=== PATIENT | male | born 1965 | race Caucasian/White ===

== ENCOUNTER 2021-01-03 04:10 | Inpatient (IN) | payer MEDICARE ==
[2021-01-03] VITALS (27 sets, daily range): BP systolic 93–136; BP diastolic 58–99
[~2021-01-03] VITALS: Ht 188 cm; Wt 91.2 kg
[2021-01-03] MEDS ORDERED: FAMOTIDINE (10MG/ML) 2ML VL IV ONE ×2 (04:45→05:30)
[2021-01-03] MEDS ORDERED: NITROGLYCERIN 2% OINT 1GM PKG TD ONE (05:00)
[2021-01-03] MEDS ORDERED: ACETAMINOPHEN 325 MG TAB PO ONE (05:00)
[2021-01-03 05:17] LABS: Basophils # (auto) 0 10 ^3/uL (0-0.2); Basophils % (auto) 0.4 % (0.0-2.0); Eosinophils # (auto) 0.2 10 ^3/uL (0-0.8); Eosinophils % (auto) 1.6 % (0.0-7.0); Hematocrit 46.3 % (41.0-53.0); Hemoglobin 15.8 g/dL (13.5-17.5); Lymphocytes # (auto) 2.3 10 ^3/uL (0.4-5.4); Lymphocytes % (auto) 22.5 % (10.0-50.0); Mean Corpuscular Hemoglobin 31.7 pg (28.0-32.0); Mean Corpuscular Hgb Conc. 34.1 g/dL (32.0-36.0); Mean Corpuscular Volume 92.9 fL (80.0-100.0); Monocytes # (auto) 0.6 10 ^3/uL (0-1.3); Monocytes % (auto) 5.7 % (0.0-12.0); Neutrophils # (auto) 7.1 10 ^3/uL (1.6-8.6); Neutrophils % (auto) 69.8 % (37.0-80.0); Red Blood Cells 4.98 10^6/uL (4.5-5.90); Red Cell Distribution Width 13.4 % (11.8-14.3); White Blood Cell 10.2 10^3/uL (4.4-10.8)
[2021-01-03] MEDS ORDERED: SUCRALFATE 1 GM/10 ML ORAL SUSP PO ONE (05:30)
[2021-01-03] MEDS ORDERED: LIDOCAINE VISCOUS 2% 15ML UD PO ONE (05:30)
[2021-01-03 05:34] LABS: Albumin 3.4 g/dL (3.4-5.0); Calcium 8.3 mg/dL (8.5-10.1); INR 0.98 (0.9-1.15); Partial Thromboplastin Time 29.5 sec (23.0-31.2); Potassium 3.6 mmol/L (3.5-5.1)
[2021-01-03 05:40] LABS: BUN/Creatinine Ratio 23.4; Bilirubin, Total 0.3 mg/dL (0.2-1.0); Total Protein 7.3 g/dL (6.4-8.2)
[2021-01-03] MEDS ORDERED: NITROGLYCERIN 0.4 MG SL TAB SL PRN ×2 (06:45→17:30)
[2021-01-03] MEDS ORDERED: ACETAMINOPHEN 325 MG TAB PO PRN (06:45)
[2021-01-03] MEDS ORDERED: TEMAZEPAM 15 MG CAP PO PRN (06:45)
[2021-01-03] MEDS ORDERED: LISINOPRIL 5 MG TAB PO SCH (06:45)
[2021-01-03] MEDS ORDERED: cloNIDine HCL 0.1 MG TAB PO PRN (06:45)
[2021-01-03] MEDS ORDERED: ENOXAPARIN SOD 100 MG/1 ML SYRINGE SC ONE (07:00)
[2021-01-03] MEDS ORDERED: METOPROLOL TARTRATE 25 MG TAB PO ONE (07:00)
[2021-01-03] MEDS: MORPHINE SULFATE INJECTION 2 MG/ML SYRG IV PRN ×2 (07:30→10:27)
[2021-01-03] MEDS: ONDANSETRON HCL 4 MG/2 ML VIAL IV PRN ×3 (07:30→18:44)
[2021-01-03] MEDS ORDERED: HEPARIN SODIUM (PORCINE) 5000 UNITS/ML 1ML VIAL IV ONE (08:30)
[2021-01-03] MEDS ORDERED: ATORVASTATIN 20 MG TAB PO ONE (09:00)
[2021-01-03] MEDS ORDERED: CLOPIDOGREL BISULFATE 75 MG TAB PO ONE (09:00)
[2021-01-03] MEDS ORDERED: ASPirin 325 MG TAB PO ONE (09:00)
[2021-01-03 09:33] LABS: Cholesterol 196 mg/dL (< 200)
[2021-01-03 09:35] LABS: HDL Cholesterol 40 mg/dL (40-59); LDL Cholesterol 128 mg/dL (< 100); Triglycerides 97 mg/dL (< 150)
[2021-01-03 09:48] LABS: INR 0.99 (0.9-1.15); Partial Thromboplastin Time 32.9 sec (23.0-31.2)
[2021-01-03] MEDS ORDERED: OPTISON 3ml Vial for INJ IV ONE ×2 (09:48→10:15)
[2021-01-03] MEDS: FAMOTIDINE 20 MG TAB PO SCH ×2 (10:00→22:37)
[2021-01-03] MEDS ORDERED: ASPirin 81 mg TAB PO SCH (10:00)
[2021-01-03] MEDS ORDERED: HCTZ 25 MG TAB PO SCH (10:00)
[2021-01-03] MEDS ORDERED: amLODIPine BESYLATE 5 MG TAB PO SCH (10:00)
[2021-01-03] MEDS: NITROGLYCERIN 50MG/250ML 250 ML IV SCH (10:06)
[2021-01-03] MEDS: HEPARIN DRIP/D5W 100UNITS/ML 250 ML IV SCH (10:34)
[2021-01-03] MEDS ORDERED: NICOTINE 14 MG/24HR TOPICAL PATCH TD ONE (10:45)
[2021-01-03] MEDS ORDERED: IOHEXOL 350 MG/ML 100ML IJ ONE ×2 (14:05→14:59)
[2021-01-03] MEDS ORDERED: LIDOCAINE 2%HCL (LOCAL ANESTH.) INJ 20ML MDV ONE (14:05)
[2021-01-03] MEDS ORDERED: ANGIOMAX 250 MG VIAL IV ONE (14:15)
[2021-01-03] MEDS ORDERED: fentaNYL CITRATE 100 MCG/2 ML VL ONE ×2 (14:15→16:43)
[2021-01-03] MEDS ORDERED: VERAPAMIL 2.5MG/ML INJ 2ML VIAL IV ONE (14:15)
[2021-01-03] MEDS ORDERED: MIDAZOLAM HCL 2MG/2ML 2ml VIAL (1mg/ml) ONE ×2 (14:16→16:44)
[2021-01-03] MEDS ORDERED: SODIUM CHL 0.9% 0 ML ONE (14:16)
[2021-01-03] MEDS ORDERED: HEPARIN SODIUM (PORCINE) 5000 UNITS/ML 1ML VIAL ONE (14:40)
[2021-01-03] MEDS ORDERED: ATROPINE SULF 1 MG/10ml SYR ONE (14:41)
[2021-01-03] MEDS ORDERED: EPINEPHrine HCL 1 MG/10 ML SYRG ONE (14:49)
[2021-01-03] MEDS ORDERED: IODIXANOL 320MG/ML 100ML BTL IV ONE ×2 (15:28→15:47)
[2021-01-03] MEDS ORDERED: ONDANSETRON HCL 4 MG/2 ML VIAL ONE (15:30)
[2021-01-03] MEDS ORDERED: hydrALAZINE HCL 20 MG/ML VL ONE (16:10)
[2021-01-03] MEDS ORDERED: CLOPIDOGREL 300 MG TAB ONE (16:55)
[2021-01-03] MEDS ORDERED: ASPirin 325 MG TAB ONE (16:55)
[2021-01-03] MEDS ORDERED: VANCOMYCIN 1GM/250ML 250 ML IV ONE (17:30)
[2021-01-03] MEDS ORDERED: ZOLPIDEM TARTRATE 5 MG TAB PO PRN (17:30)
[2021-01-03] MEDS ORDERED: MORPHINE SULFATE INJECTION 2 MG/ML SYRG IV PRN (17:30)
[2021-01-03] MEDS ORDERED: ALPRAZolam 0.25 MG TAB PO PRN (18:00)
[2021-01-03 18:52] LABS: Basophils # (auto) 0 10 ^3/uL (0-0.2); Basophils % (auto) 0.3 % (0.0-2.0); Eosinophils # (auto) 0 10 ^3/uL (0-0.8); Hematocrit 45.9 % (41.0-53.0); Hemoglobin 15.4 g/dL (13.5-17.5); Lymphocytes # (auto) 1.7 10 ^3/uL (0.4-5.4); Lymphocytes % (auto) 12.6 % (10.0-50.0); Mean Corpuscular Hemoglobin 31.2 pg (28.0-32.0); Mean Corpuscular Hgb Conc. 33.5 g/dL (32.0-36.0); Mean Corpuscular Volume 93.3 fL (80.0-100.0); Monocytes # (auto) 0.7 10 ^3/uL (0-1.3); Monocytes % (auto) 5.3 % (0.0-12.0); Neutrophils # (auto) 10.9 10 ^3/uL (1.6-8.6); Neutrophils % (auto) 81.8 % (37.0-80.0); Red Blood Cells 4.92 10^6/uL (4.5-5.90); Red Cell Distribution Width 13.3 % (11.8-14.3); White Blood Cell 13.4 10^3/uL (4.4-10.8)
[2021-01-03 19:04] LABS: INR 1.1 (0.9-1.15)
[2021-01-03 19:28] LABS: Partial Thromboplastin Time 93.1 sec (23.0-31.2)
[2021-01-03] MEDS: HYDROmorphone HCL 2 MG/ML VL IV PRN (20:51)
[2021-01-03] MEDS ORDERED: CARVEDILOL 3.125 MG TAB PO SCH (22:00)
[2021-01-03] MEDS ORDERED: METOPROLOL TARTRATE 25 MG TAB PO SCH (22:00)
[2021-01-03] MEDS ORDERED: ATORVASTATIN 20 MG TAB PO SCH (22:00)
[2021-01-03] MEDS: CARVEDILOL 3.125 MG TAB PO SCH (22:38)
[2021-01-03] MEDS: ATORVASTATIN 20 MG TAB PO SCH (22:38)
[2021-01-03] MEDS: LISINOPRIL 10 MG TAB PO SCH (23:18)
[2021-01-04] VITALS (79 sets, daily range): BP systolic 68–147; BP diastolic 38–88
[2021-01-04] MEDS: HYDROmorphone HCL 2 MG/ML VL IV PRN ×3 (04:16→16:09)
[2021-01-04 04:20] LABS: Basophils # (auto) 0 10 ^3/uL (0-0.2); Basophils % (auto) 0.4 % (0.0-2.0); Eosinophils # (auto) 0 10 ^3/uL (0-0.8); Eosinophils % (auto) 0.1 % (0.0-7.0); Hematocrit 43.4 % (41.0-53.0); Hemoglobin 14.6 g/dL (13.5-17.5); Lymphocytes % (auto) 16.4 % (10.0-50.0); Mean Corpuscular Hemoglobin 31.6 pg (28.0-32.0); Mean Corpuscular Hgb Conc. 33.6 g/dL (32.0-36.0); Mean Corpuscular Volume 94.1 fL (80.0-100.0); Monocytes % (auto) 8.1 % (0.0-12.0); Neutrophils # (auto) 9.2 10 ^3/uL (1.6-8.6); Nucleated Red Blood Cells % 0.1 %; Red Blood Cells 4.61 10^6/uL (4.5-5.90); Red Cell Distribution Width 13.4 % (11.8-14.3); White Blood Cell 12.3 10^3/uL (4.4-10.8)
[2021-01-04 04:33] LABS: Albumin 3.1 g/dL (3.4-5.0); Calcium 7.8 mg/dL (8.5-10.1); Magnesium 1.9 mg/dL (1.6-2.6); Potassium 3.9 mmol/L (3.5-5.1)
[2021-01-04 04:35] LABS: BUN/Creatinine Ratio 19.5
[2021-01-04 04:53] LABS: Bilirubin, Total 0.8 mg/dL (0.2-1.0); Total Protein 6.8 g/dL (6.4-8.2)
[2021-01-04 08:40] LABS: INR 1.06 (0.9-1.15); Partial Thromboplastin Time 57.8 sec (23.0-31.2)
[2021-01-04] MEDS: LISINOPRIL 10 MG TAB PO SCH ×2 (10:00→21:35)
[2021-01-04] MEDS: CARVEDILOL 3.125 MG TAB PO SCH ×2 (10:00→22:16)
[2021-01-04] MEDS: ASPirin 81 mg TAB PO SCH (10:05)
[2021-01-04] MEDS: FAMOTIDINE 20 MG TAB PO SCH ×2 (10:05→22:15)
[2021-01-04] MEDS: HEPARIN DRIP/D5W 100UNITS/ML 250 ML IV SCH (11:00)
[2021-01-04] MEDS: NICOTINE 14 MG/24HR TOPICAL PATCH TD SCH (11:05)
[2021-01-04] MEDS: NITROGLYCERIN 50MG/250ML 250 ML IV SCH (12:00)
[2021-01-04] MEDS ORDERED: CLOPIDOGREL BISULFATE 75 MG TAB PO ONE (12:30)
[2021-01-04 12:49] LABS: Basophils # (auto) 0 10 ^3/uL (0-0.2); Basophils % (auto) 0.4 % (0.0-2.0); Eosinophils # (auto) 0 10 ^3/uL (0-0.8); Eosinophils % (auto) 0.2 % (0.0-7.0); Hematocrit 40.2 % (41.0-53.0); Hemoglobin 13.7 g/dL (13.5-17.5); Lymphocytes # (auto) 1.9 10 ^3/uL (0.4-5.4); Lymphocytes % (auto) 18.1 % (10.0-50.0); Mean Corpuscular Hemoglobin 31.5 pg (28.0-32.0); Mean Corpuscular Volume 92.8 fL (80.0-100.0); Monocytes # (auto) 0.8 10 ^3/uL (0-1.3); Monocytes % (auto) 7.8 % (0.0-12.0); Neutrophils # (auto) 7.6 10 ^3/uL (1.6-8.6); Neutrophils % (auto) 73.5 % (37.0-80.0); Nucleated Red Blood Cells % 0.1 %; Red Blood Cells 4.34 10^6/uL (4.5-5.90); Red Cell Distribution Width 13.2 % (11.8-14.3); White Blood Cell 10.3 10^3/uL (4.4-10.8)
[2021-01-04 13:09] LABS: Albumin 2.8 g/dL (3.4-5.0); Potassium 3.4 mmol/L (3.5-5.1)
[2021-01-04 13:29] LABS: BUN/Creatinine Ratio 25.8; Total Protein 6.3 g/dL (6.4-8.2)
[2021-01-04] MEDS ORDERED: POTASSIUM CHL 20 Meq TABLET PO ONE (13:45)
[2021-01-04] MEDS ORDERED: MAGNESIUM SULFATE 1GM/100ML 100 ML IV ONE (13:45)
[2021-01-04] MEDS ORDERED: FUROSEMIDE 40 MG/4 ML VIAL IV ONE (13:45)
[2021-01-04] MEDS ORDERED: LIDOCAINE 1% (LOCAL ANESTH.) PF 5ml SDV ONE (15:53)
[2021-01-04] MEDS ORDERED: CLOPIDOGREL BISULFATE 75 MG TAB PO SCH (22:00)
[2021-01-04] MEDS: ATORVASTATIN 20 MG TAB PO SCH (22:15)
[2021-01-05] VITALS (39 sets, daily range): BP systolic 89–129; BP diastolic 50–93
[2021-01-05 04:51] LABS: Potassium 3.9 mmol/L (3.5-5.1)
[2021-01-05 05:15] LABS: Bilirubin, Total 1.1 mg/dL (0.2-1.0); Calcium 8.2 mg/dL (8.5-10.1); Magnesium 2.3 mg/dL (1.6-2.6); Total Protein 7.2 g/dL (6.4-8.2)
[2021-01-05] MEDS: NITROGLYCERIN 50MG/250ML 250 ML IV SCH (08:47)
[2021-01-05] MEDS: CLOPIDOGREL BISULFATE 75 MG TAB PO SCH (09:21)
[2021-01-05] MEDS: CARVEDILOL 3.125 MG TAB PO SCH ×2 (09:23→22:00)
[2021-01-05] MEDS: FAMOTIDINE 20 MG TAB PO SCH ×2 (09:23→22:00)
[2021-01-05] MEDS: ASPirin 81 mg TAB PO SCH (09:23)
[2021-01-05] MEDS: LISINOPRIL 10 MG TAB PO SCH ×2 (10:00→22:00)
[2021-01-05] MEDS: NICOTINE 14 MG/24HR TOPICAL PATCH TD SCH (10:33)
[2021-01-05] MEDS: ATORVASTATIN 20 MG TAB PO SCH (22:00)
[2021-01-06] VITALS (33 sets, daily range): BP systolic 83–122; BP diastolic 49–85
[2021-01-06 04:49] LABS: Albumin 2.9 g/dL (3.4-5.0); Potassium 3.6 mmol/L (3.5-5.1)
[2021-01-06 04:58] LABS: Bilirubin, Direct 0.2 mg/dL (0-0.2); Bilirubin, Total 0.6 mg/dL (0.2-1.0)
[2021-01-06] MEDS ORDERED: IODIXANOL 320MG/ML 100ML BTL IV ONE (07:30)
[2021-01-06] MEDS ORDERED: LIDOCAINE 2%HCL (LOCAL ANESTH.) INJ 20ML MDV ONE (07:30)
[2021-01-06] MEDS ORDERED: ANGIOMAX 250 MG VIAL IV ONE ×2 (08:14→09:38)
[2021-01-06] MEDS ORDERED: SODIUM CHL 0.9% 50 ML ONE ×2 (08:14→09:38)
[2021-01-06] MEDS ORDERED: fentaNYL CITRATE 100 MCG/2 ML VL ONE ×2 (08:14→09:45)
[2021-01-06] MEDS ORDERED: MIDAZOLAM HCL 2MG/2ML 2ml VIAL (1mg/ml) ONE ×2 (08:14→09:45)
[2021-01-06] MEDS ORDERED: HEPARIN SODIUM (PORCINE) 5000 UNITS/ML 1ML VIAL ONE (08:15)
[2021-01-06] MEDS ORDERED: VERAPAMIL 2.5MG/ML INJ 2ML VIAL IV ONE (08:15)
[2021-01-06] MEDS: ASPirin 81 mg TAB PO SCH (08:35)
[2021-01-06] MEDS: CARVEDILOL 3.125 MG TAB PO SCH ×2 (08:35→22:00)
[2021-01-06] MEDS: CLOPIDOGREL BISULFATE 75 MG TAB PO SCH (08:36)
[2021-01-06] MEDS: LISINOPRIL 10 MG TAB PO SCH (08:36)
[2021-01-06] MEDS: FAMOTIDINE 20 MG TAB PO SCH ×2 (08:36→22:00)
[2021-01-06] MEDS: NICOTINE 14 MG/24HR TOPICAL PATCH TD SCH (08:37)
[2021-01-06] MEDS ORDERED: ATROPINE SULF 1 MG/10ml SYR ONE (08:57)
[2021-01-06] MEDS ORDERED: EPINEPHrine HCL 1 MG/10 ML SYRG ONE (08:57)
[2021-01-06] MEDS: HYDROmorphone HCL 2 MG/ML VL IV PRN ×2 (14:46→18:09)
[2021-01-06] MEDS: ATORVASTATIN 20 MG TAB PO SCH (22:00)
[2021-01-07] MEDS: HYDROmorphone HCL 2 MG/ML VL IV PRN (03:26)
[2021-01-07 05:17] VITALS: BP 108/69
[2021-01-07 06:22] LABS: Albumin 2.7 g/dL (3.4-5.0); Calcium 7.9 mg/dL (8.5-10.1); Magnesium 2.1 mg/dL (1.6-2.6); Potassium 4.5 mmol/L (3.5-5.1)
[2021-01-07 06:26] LABS: Bilirubin, Total 0.6 mg/dL (0.2-1.0); Total Protein 6.6 g/dL (6.4-8.2)
[2021-01-07 08:30] VITALS: BP 121/76
[2021-01-07 09:24] LABS: Basophils # (auto) 0 10 ^3/uL (0-0.2); Basophils % (auto) 0.4 % (0.0-2.0); Eosinophils # (auto) 0.1 10 ^3/uL (0-0.8); Eosinophils % (auto) 1.4 % (0.0-7.0); Hematocrit 44.6 % (41.0-53.0); Hemoglobin 14.9 g/dL (13.5-17.5); Lymphocytes # (auto) 2.3 10 ^3/uL (0.4-5.4); Mean Corpuscular Hemoglobin 31.4 pg (28.0-32.0); Mean Corpuscular Hgb Conc. 33.5 g/dL (32.0-36.0); Mean Corpuscular Volume 93.7 fL (80.0-100.0); Monocytes # (auto) 1.1 10 ^3/uL (0-1.3); Monocytes % (auto) 10.9 % (0.0-12.0); Neutrophils # (auto) 6.6 10 ^3/uL (1.6-8.6); Neutrophils % (auto) 64.3 % (37.0-80.0); Nucleated Red Blood Cells % 0.1 %; Red Blood Cells 4.76 10^6/uL (4.5-5.90); Red Cell Distribution Width 13.2 % (11.8-14.3); White Blood Cell 10.2 10^3/uL (4.4-10.8)
[2021-01-07] MEDS: CARVEDILOL 3.125 MG TAB PO SCH ×3 (10:45→21:51)
[2021-01-07] MEDS: ASPirin 81 mg TAB PO SCH (10:47)
[2021-01-07] MEDS: SACUBITRIL-VALSARTAN 24mg/26mg TAB PO SCH ×2 (10:47→21:52)
[2021-01-07] MEDS: FAMOTIDINE 20 MG TAB PO SCH ×2 (10:48→21:52)
[2021-01-07] MEDS: CLOPIDOGREL BISULFATE 75 MG TAB PO SCH (10:48)
[2021-01-07] MEDS: NICOTINE 14 MG/24HR TOPICAL PATCH TD SCH (10:52)
[2021-01-07] MEDS: Glucerna Carbsteady SHAKE Vanilla 8oz PO SCH ×2 (12:47→18:09)
[2021-01-07 13:00] VITALS: BP 103/68
[2021-01-07 16:33] VITALS: BP 119/68
[2021-01-07] MEDS ORDERED: LOPERAMIDE 1 mg/7.5ml ORAL soln GT PRN (19:30)
[2021-01-07] MEDS ORDERED: LOPERAMIDE HCL 2 MG CAP ONE (21:39)
[2021-01-07] MEDS: LOPERAMIDE HCL 2 MG CAP PO PRN (21:50)
[2021-01-07] MEDS: ATORVASTATIN 20 MG TAB PO SCH (21:51)
[2021-01-07 21:53] VITALS: BP 112/66
[2021-01-08 05:00] VITALS: BP 102/81
[2021-01-08] MEDS: HYDROmorphone HCL 2 MG/ML VL IV PRN ×4 (05:26→23:15)
[2021-01-08] MEDS: LOPERAMIDE HCL 2 MG CAP PO PRN (05:36)
[2021-01-08 07:50] LABS: Basophils # (auto) 0 10 ^3/uL (0-0.2); Basophils % (auto) 0.4 % (0.0-2.0); Eosinophils # (auto) 0.2 10 ^3/uL (0-0.8); Eosinophils % (auto) 1.4 % (0.0-7.0); Hematocrit 45.2 % (41.0-53.0); Hemoglobin 15.6 g/dL (13.5-17.5); Lymphocytes # (auto) 2.1 10 ^3/uL (0.4-5.4); Lymphocytes % (auto) 20.3 % (10.0-50.0); Mean Corpuscular Hgb Conc. 34.6 g/dL (32.0-36.0); Mean Corpuscular Volume 92.7 fL (80.0-100.0); Monocytes # (auto) 1.1 10 ^3/uL (0-1.3); Monocytes % (auto) 10.2 % (0.0-12.0); Neutrophils # (auto) 7.1 10 ^3/uL (1.6-8.6); Neutrophils % (auto) 67.7 % (37.0-80.0); Red Blood Cells 4.88 10^6/uL (4.5-5.90); Red Cell Distribution Width 12.7 % (11.8-14.3); White Blood Cell 10.5 10^3/uL (4.4-10.8)
[2021-01-08 07:59] LABS: Potassium 3.7 mmol/L (3.5-5.1)
[2021-01-08 08:07] LABS: Albumin 2.8 g/dL (3.4-5.0); BUN/Creatinine Ratio 20.7; Calcium 8.1 mg/dL (8.5-10.1)
[2021-01-08 08:12] LABS: Bilirubin, Total 0.9 mg/dL (0.2-1.0); Total Protein 7.1 g/dL (6.4-8.2)
[2021-01-08 08:30] VITALS: BP 100/70
[2021-01-08] MEDS: Glucerna Carbsteady SHAKE Vanilla 8oz PO SCH ×3 (09:44→17:56)
[2021-01-08] MEDS: FAMOTIDINE 20 MG TAB PO SCH ×2 (10:34→22:33)
[2021-01-08] MEDS: ASPirin 81 mg TAB PO SCH (10:34)
[2021-01-08] MEDS: NICOTINE 14 MG/24HR TOPICAL PATCH TD SCH (10:34)
[2021-01-08] MEDS: CARVEDILOL 3.125 MG TAB PO SCH ×2 (10:35→22:33)
[2021-01-08] MEDS: SACUBITRIL-VALSARTAN 24mg/26mg TAB PO SCH ×2 (10:36→22:33)
[2021-01-08] MEDS: CLOPIDOGREL BISULFATE 75 MG TAB PO SCH (10:36)
[2021-01-08 13:00] VITALS: BP 92/68
[2021-01-08 16:44] VITALS: BP 90/72
[2021-01-08 22:00] VITALS: BP 109/63
[2021-01-08] MEDS: ATORVASTATIN 20 MG TAB PO SCH (22:33)
[2021-01-09] MEDS: HYDROmorphone HCL 2 MG/ML VL IV PRN ×4 (04:24→16:59)
[2021-01-09 05:00] VITALS: BP 89/64
[2021-01-09 06:26] LABS: Basophils # (auto) 0.1 10 ^3/uL (0-0.2); Basophils % (auto) 0.7 % (0.0-2.0); Eosinophils # (auto) 0.2 10 ^3/uL (0-0.8); Eosinophils % (auto) 2.2 % (0.0-7.0); Hematocrit 43.1 % (41.0-53.0); Hemoglobin 15.1 g/dL (13.5-17.5); Lymphocytes # (auto) 1.9 10 ^3/uL (0.4-5.4); Lymphocytes % (auto) 20.3 % (10.0-50.0); Mean Corpuscular Hemoglobin 32.7 pg (28.0-32.0); Mean Corpuscular Hgb Conc. 35.2 g/dL (32.0-36.0); Monocytes # (auto) 0.9 10 ^3/uL (0-1.3); Monocytes % (auto) 9.8 % (0.0-12.0); Neutrophils # (auto) 6.4 10 ^3/uL (1.6-8.6); Nucleated Red Blood Cells % 0.3 %; Red Blood Cells 4.63 10^6/uL (4.5-5.90); Red Cell Distribution Width 12.9 % (11.8-14.3); White Blood Cell 9.6 10^3/uL (4.4-10.8)
[2021-01-09 06:52] LABS: BUN/Creatinine Ratio 28.9; Calcium 8.5 mg/dL (8.5-10.1)
[2021-01-09] MEDS: Glucerna Carbsteady SHAKE Vanilla 8oz PO SCH ×3 (08:09→18:00)
[2021-01-09] MEDS: CLOPIDOGREL BISULFATE 75 MG TAB PO SCH (08:54)
[2021-01-09] MEDS: CARVEDILOL 3.125 MG TAB PO SCH (08:54)
[2021-01-09] MEDS: ASPirin 81 mg TAB PO SCH (08:55)
[2021-01-09] MEDS: FAMOTIDINE 20 MG TAB PO SCH (08:55)
[2021-01-09] MEDS: SACUBITRIL-VALSARTAN 24mg/26mg TAB PO SCH (08:55)
[2021-01-09] MEDS: NICOTINE 14 MG/24HR TOPICAL PATCH TD SCH (08:56)
[2021-01-09 09:00] VITALS: BP 121/71
[2021-01-09] MEDS ORDERED: SACU1TAB PO (12:39)
[2021-01-09] MEDS ORDERED: ATOR20TA50 PO (12:39)
[2021-01-09] MEDS ORDERED: PANT40TA2 PO (12:39)
[2021-01-09] MEDS ORDERED: NIC21P TOP (12:39)
[2021-01-09] MEDS ORDERED: ASPI1CHW15 PO (12:39)
[2021-01-09] MEDS ORDERED: CLOP75TA28 PO (12:39)
[2021-01-09] MEDS ORDERED: CAR3125T PO (12:39)
[2021-01-09 13:00] VITALS: BP 101/66
[2021-03-10] MEDS ORDERED: FURO1TAB33 PO (12:46)
[2021-03-10] MEDS ORDERED: POTA1TAB61 PO (12:46)
[2021-03-10] MEDS ORDERED: ZINC220T6 PO (12:46)
[2021-03-10] MEDS ORDERED: ALBUAER3 IN (12:46)
[2021-03-10] MEDS ORDERED: ASCO10003 PO (12:46)
[2021-03-10] MEDS ORDERED: CHOL500023 PO (12:46)
[2021-03-10] MEDS ORDERED: SACU1TAB PO (13:03)
[2021-03-10] MEDS ORDERED: CLOP75TA28 PO (13:03)
[2021-03-10] MEDS ORDERED: PANT40TA2 PO (13:03)
[2021-03-10] MEDS ORDERED: ASPI1CHW15 PO (13:03)
[2021-03-10] MEDS ORDERED: CAR3125T PO (13:03)
[2021-03-10] MEDS ORDERED: ATOR20TA50 PO (13:03)
== END 2021-01-09 17:30 | disposition home or self-care (01) | DRG 270 ==
LOC: EDBD 04:10 → ER 04:10 → TELE 04:11 → ICU WEST 17:00 → TELE-CENTR 01-06 23:45
PROVIDERS: ADMIT Nurse Practitioner; ATTEND Internal Medicine
PROC: B215YZZ Fluoroscopy of Left Heart using Other Contrast (ICD-10-PCS; principal; 2021-01-03)
PROC: 5A02210 Assistance with Cardiac Output using Balloon Pump, Continuous (ICD-10-PCS; 2021-01-03)
PROC: 4A023N7 Measurement of Cardiac Sampling and Pressure, Left Heart, Percutaneous Approach (ICD-10-PCS; 2021-01-03)
PROC: B211YZZ Fluoroscopy of Multiple Coronary Arteries using Other Contrast (ICD-10-PCS; 2021-01-03)
PROC: B240ZZ3 Ultrasonography of Single Coronary Artery, Intravascular (ICD-10-PCS; 2021-01-03)
PROC: 027036Z Dilation of Coronary Artery, One Artery with Three Drug-eluting Intraluminal Devices, Percutaneous Approach (ICD-10-PCS; 2021-01-03)
PROC: 027035Z Dilation of Coronary Artery, One Artery with Two Drug-eluting Intraluminal Devices, Percutaneous Approach (ICD-10-PCS; 2021-01-06)
PROC: 4A023N7 Measurement of Cardiac Sampling and Pressure, Left Heart, Percutaneous Approach (ICD-10-PCS; 2021-01-06)
PROC: B211YZZ Fluoroscopy of Multiple Coronary Arteries using Other Contrast (ICD-10-PCS; 2021-01-06)
DX: I21.4 Non-ST elevation (NSTEMI) myocardial infarction (principal); I50.43 Acute on chronic combined systolic (congestive) and diastolic (congestive) heart failure; R65.10 Systemic inflammatory response syndrome (SIRS) of non-infectious origin without acute organ dysfunction; I11.0 Hypertensive heart disease with heart failure; Z20.822 Contact with and (suspected) exposure to COVID-19; E78.5 Hyperlipidemia, unspecified; I25.10 Atherosclerotic heart disease of native coronary artery without angina pectoris; E88.09 Other disorders of plasma-protein metabolism, not elsewhere classified; F17.210 Nicotine dependence, cigarettes, uncomplicated; I71.9 Aortic aneurysm of unspecified site, without rupture; Z82.49 Family history of ischemic heart disease and other diseases of the circulatory system; Z91.19 Patient's noncompliance with other medical treatment and regimen; Z79.899 Other long term (current) drug therapy; Z79.891 Long term (current) use of opiate analgesic; Z79.01 Long term (current) use of anticoagulants; Z71.6 Tobacco abuse counseling; Z68.25 Body mass index [BMI] 25.0-25.9, adult
CPT/HCPCS: 36415; 71045; 80048; 80053; 80061; 80076; 83036; 83735; 83880; 84132; 84154; 84443; 84484; 85025; 85379; 85610; 85730; 87081; 87426; 92928; 93005; 93306; 93458; 99152; 99153; C1874; C1887; G0378; J2250; J2405; J3490; Q9956; Q9967

== ENCOUNTER 2021-02-02 13:05 | Inpatient (IN) | payer MEDICARE ==
[2021-02-02] VITALS (27 sets, daily range): BP systolic 89–123; BP diastolic 45–83
[~2021-02-02] VITALS: Ht 190.5 cm; Wt 86.9 kg
[~2021-02-02 13:05] MED LIST: ASPI1CHW15 PO; ATOR20TA50 PO; CAR3125T PO; CLOP75TA28 PO; NIC21P TOP; PANT40TA2 PO; SACU1TAB PO
[2021-02-02] MEDS ORDERED: SODIUM CHLORIDE 0.9% 1,000 ML IVB ONE (13:30)
[2021-02-02 13:41] LABS: Basophils # (auto) 0 10 ^3/uL (0-0.2); Basophils % (auto) 0.5 % (0.0-2.0); Eosinophils # (auto) 0 10 ^3/uL (0-0.8); Hematocrit 46.6 % (41.0-53.0); Hemoglobin 15.9 g/dL (13.5-17.5); Lymphocytes % (auto) 16.8 % (10.0-50.0); Mean Corpuscular Hemoglobin 31.6 pg (28.0-32.0); Mean Corpuscular Hgb Conc. 34.1 g/dL (32.0-36.0); Mean Corpuscular Volume 92.7 fL (80.0-100.0); Monocytes # (auto) 0.4 10 ^3/uL (0-1.3); Monocytes % (auto) 7.3 % (0.0-12.0); Neutrophils # (auto) 4.4 10 ^3/uL (1.6-8.6); Neutrophils % (auto) 75.4 % (37.0-80.0); Nucleated Red Blood Cells % 0.1 %; Platelet Count (auto) 140 10^3/uL (140-450); Red Blood Cells 5.02 10^6/uL (4.5-5.90); White Blood Cell 5.8 10^3/uL (4.4-10.8)
[2021-02-02 13:57] LABS: INR 1.08 (0.9-1.15); Partial Thromboplastin Time 30.7 sec (23.0-31.2)
[2021-02-02] MEDS ORDERED: MORPHINE SULF INJ 2 MG/ML SYRINGE 1ML IV ONE (14:00)
[2021-02-02] MEDS ORDERED: ONDANSETRON HCL 4 MG/2 ML VIAL IV ONE (14:00)
[2021-02-02] MEDS ORDERED: SODIUM CHLORIDE 0.9% 1,000 ML IV ONE (14:00)
[2021-02-02 14:10] LABS: Albumin 3.2 g/dL (3.4-5.0); BUN/Creatinine Ratio 11.7; Bilirubin, Total 0.6 mg/dL (0.2-1.0); Calcium 7.9 mg/dL (8.5-10.1); Total Protein 7.2 g/dL (6.4-8.2)
[2021-02-02] MEDS ORDERED: ONDANSETRON HCL 4 MG/2 ML VIAL IV PRN (15:15)
[2021-02-02] MEDS ORDERED: NITROGLYCERIN 0.4 MG SL TAB SL PRN (15:15)
[2021-02-02] MEDS ORDERED: ACETYLCYSTEINE ORAL for CIN 20%(200MG/ML) 4ML PO ONE (15:30)
[2021-02-02] MEDS: MORPHINE SULF INJ 2 MG/ML SYRINGE 1ML IV PRN ×2 (17:30→22:11)
[2021-02-02] MEDS: SODIUM CHLORIDE 0.9% 1,000 ML IV SCH (17:45)
[2021-02-02] MEDS: ACETYLCYSTEINE ORAL for CIN 20%(200MG/ML) 4ML PO SCH (21:30)
[2021-02-02] MEDS: ATORVASTATIN 20 MG TAB PO SCH (21:30)
[2021-02-03] VITALS (55 sets, daily range): BP systolic 107–147; BP diastolic 58–96
[2021-02-03] MEDS: DOBUTamine 1000MCG/ML 250 ML IV SCH ×3 (02:43→23:09)
[2021-02-03] MEDS: MORPHINE SULF INJ 2 MG/ML SYRINGE 1ML IV PRN ×2 (03:38→21:48)
[2021-02-03 07:59] LABS: Basophils # (auto) 0 10 ^3/uL (0-0.2); Basophils % (auto) 0.2 % (0.0-2.0); Eosinophils # (auto) 0 10 ^3/uL (0-0.8); Hematocrit 44.2 % (41.0-53.0); Lymphocytes % (auto) 32.3 % (10.0-50.0); Mean Corpuscular Hemoglobin 31.2 pg (28.0-32.0); Mean Corpuscular Volume 91.7 fL (80.0-100.0); Monocytes # (auto) 0.2 10 ^3/uL (0-1.3); Monocytes % (auto) 7.6 % (0.0-12.0); Neutrophils # (auto) 1.8 10 ^3/uL (1.6-8.6); Neutrophils % (auto) 59.9 % (37.0-80.0); Nucleated Red Blood Cells % 0.5 %; Platelet Count (auto) 111 10^3/uL (140-450); Red Blood Cells 4.82 10^6/uL (4.5-5.90); Red Cell Distribution Width 13.2 % (11.8-14.3); White Blood Cell 3.1 10^3/uL (4.4-10.8)
[2021-02-03] MEDS: SODIUM CHLORIDE 0.9% 1,000 ML IV SCH (08:10)
[2021-02-03 08:14] LABS: BUN/Creatinine Ratio 16.2; Calcium 7.9 mg/dL (8.5-10.1)
[2021-02-03 08:16] LABS: INR 1.08 (0.9-1.15); Partial Thromboplastin Time 29.9 sec (23.0-31.2)
[2021-02-03] MEDS ORDERED: IODIXANOL 320MG/ML 100ML BTL IV ONE ×2 (08:44→13:40)
[2021-02-03] MEDS: PANTOPRAZOLE 40 MG TAB PO SCH (08:45)
[2021-02-03] MEDS: CLOPIDOGREL BISULFATE 75 MG TAB PO SCH (08:45)
[2021-02-03] MEDS: ASPirin 81 mg TAB PO SCH (08:45)
[2021-02-03] MEDS: ACETYLCYSTEINE ORAL for CIN 20%(200MG/ML) 4ML PO SCH ×2 (10:00→21:28)
[2021-02-03] MEDS: NICOTINE 21MG/24 HR TOPICAL PATCH TD SCH (10:00)
[2021-02-03] MEDS ORDERED: ACETAMINOPHEN 500 MG TAB PO PRN (10:30)
[2021-02-03] MEDS ORDERED: ALBUTEROL SULF HFA 90MCG INH 200DOSE IN PRN (10:30)
[2021-02-03] MEDS ORDERED: LIDOCAINE 2%HCL (LOCAL ANESTH.) INJ 20ML MDV ONE (13:40)
[2021-02-03] MEDS ORDERED: ANGIOMAX 250 MG VIAL IV ONE (14:05)
[2021-02-03] MEDS ORDERED: VERAPAMIL 2.5MG/ML INJ 2ML VIAL IV ONE (14:05)
[2021-02-03] MEDS ORDERED: fentaNYL CITRATE 100 MCG/2 ML VL ONE (14:05)
[2021-02-03] MEDS ORDERED: MIDAZOLAM HCL 1MG/1ML-2 ML VIAL ONE (14:06)
[2021-02-03] MEDS ORDERED: IOHEXOL 350 MG/ML 100ML IJ ONE (14:06)
[2021-02-03] MEDS ORDERED: SODIUM CHL 0.9% 0 ML ONE (14:06)
[2021-02-03] MEDS ORDERED: HEPARIN SODIUM (PORCINE) 5000 UNITS/ML 1ML VIAL ONE (14:07)
[2021-02-03] MEDS: IPRATROPIUM BROMIDE HFA AER IN SCH ×3 (14:22→22:00)
[2021-02-03] MEDS: ALBUTEROL SULF HFA 90MCG INH 200DOSE IN PRN (20:44)
[2021-02-03] MEDS: DOXYCYCLINE 100MG/250ML 250 ML IV SCH (21:28)
[2021-02-03] MEDS: ATORVASTATIN 20 MG TAB PO SCH (21:28)
[2021-02-03] MEDS: ENOXAPARIN SOD 40 MG/0.4 ML SYRINGE SC SCH (21:29)
[2021-02-04] VITALS (7 sets, daily range): BP systolic 116–141; BP diastolic 71–85
[2021-02-04] MEDS: MORPHINE SULF INJ 2 MG/ML SYRINGE 1ML IV PRN ×2 (02:34→06:32)
[2021-02-04 06:58] LABS: Basophils # (auto) 0 10 ^3/uL (0-0.2); Basophils % (auto) 0.3 % (0.0-2.0); Eosinophils # (auto) 0 10 ^3/uL (0-0.8); Hematocrit 47.1 % (41.0-53.0); Hemoglobin 16.4 g/dL (13.5-17.5); Lymphocytes % (auto) 24.1 % (10.0-50.0); Mean Corpuscular Hemoglobin 31.6 pg (28.0-32.0); Mean Corpuscular Hgb Conc. 34.8 g/dL (32.0-36.0); Mean Corpuscular Volume 90.8 fL (80.0-100.0); Monocytes # (auto) 0.4 10 ^3/uL (0-1.3); Monocytes % (auto) 9.7 % (0.0-12.0); Neutrophils # (auto) 2.6 10 ^3/uL (1.6-8.6); Neutrophils % (auto) 65.9 % (37.0-80.0); Nucleated Red Blood Cells % 0.1 %; Platelet Count (auto) 116 10^3/uL (140-450); Red Blood Cells 5.19 10^6/uL (4.5-5.90)
[2021-02-04] MEDS ORDERED: IVERMECTIN 3 MG TAB PO ONE (07:00)
[2021-02-04 07:19] LABS: Potassium 4.1 mmol/L (3.5-5.1)
[2021-02-04 07:24] LABS: BUN/Creatinine Ratio 16.3; Calcium 8.3 mg/dL (8.5-10.1)
[2021-02-04] MEDS ORDERED: DexAMETHasone SOD PHOS 10MG/1ML VIAL INJ IV SCH (10:00)
[2021-02-04] MEDS: DOXYCYCLINE 100MG/250ML 250 ML IV SCH (10:23)
[2021-02-04] MEDS: ZINC SULFATE 220mg CAP or TAB PO SCH (10:24)
[2021-02-04] MEDS: ASCORBIC ACID 1,000 MG TAB PO SCH (10:24)
[2021-02-04] MEDS: ASPirin 81 mg TAB PO SCH (10:24)
[2021-02-04] MEDS: PANTOPRAZOLE 40 MG TAB PO SCH (10:24)
[2021-02-04] MEDS: CLOPIDOGREL BISULFATE 75 MG TAB PO SCH (10:24)
[2021-02-04] MEDS: CHOLECALCIFEROL (VITD3) 2,000 UNIT CAP/TAB PO SCH (10:25)
[2021-02-04] MEDS: NICOTINE 21MG/24 HR TOPICAL PATCH TD SCH (10:25)
[2021-02-04] MEDS: ENOXAPARIN SOD 40 MG/0.4 ML SYRINGE SC SCH (10:25)
[2021-02-04] MEDS ORDERED: REMDESIVIR PER PHARMACY 0 ML IV SCH (18:00)
[2021-02-04] MEDS: DexAMETHasone 4 MG TAB PO ONE ×2 (18:17→18:21)
[2021-02-04] MEDS: ALBUTEROL SULF HFA 90MCG INH 200DOSE IN PRN (18:26)
[2021-02-04] MEDS: IPRATROPIUM BROMIDE HFA AER IN SCH ×2 (18:26→21:58)
[2021-02-04] MEDS ORDERED: REMDESIVIR 200 MG in NS 210ml LOADING DOSE ADULT IV ONE (20:15)
[2021-02-04] MEDS: ATORVASTATIN 20 MG TAB PO SCH (20:46)
[2021-02-04] MEDS: ACETAMINOPHEN 500 MG TAB PO PRN (20:47)
[2021-02-04] MEDS: metroNIDAZOLE 500MG/100ML 100 ML IV SCH (21:52)
[2021-02-05] MEDS: DOXYCYCLINE 100MG/250ML 250 ML IV SCH ×2 (00:33→10:14)
[2021-02-05] MEDS: MORPHINE SULF INJ 2 MG/ML SYRINGE 1ML IV PRN ×3 (02:41→21:39)
[2021-02-05 05:00] VITALS: BP 116/74
[2021-02-05] MEDS: metroNIDAZOLE 500MG/100ML 100 ML IV SCH ×3 (05:27→21:30)
[2021-02-05 06:03] LABS: Basophils # (auto) 0 10 ^3/uL (0-0.2); Basophils % (auto) 0.3 % (0.0-2.0); Eosinophils # (auto) 0 10 ^3/uL (0-0.8); Hematocrit 46.9 % (41.0-53.0); Hemoglobin 16.3 g/dL (13.5-17.5); Lymphocytes # (auto) 0.7 10 ^3/uL (0.4-5.4); Lymphocytes % (auto) 20.6 % (10.0-50.0); Mean Corpuscular Hemoglobin 31.3 pg (28.0-32.0); Mean Corpuscular Hgb Conc. 34.8 g/dL (32.0-36.0); Monocytes # (auto) 0.3 10 ^3/uL (0-1.3); Monocytes % (auto) 10.7 % (0.0-12.0); Neutrophils # (auto) 2.2 10 ^3/uL (1.6-8.6); Neutrophils % (auto) 68.4 % (37.0-80.0); Nucleated Red Blood Cells % 0.2 %; Platelet Count (auto) 132 10^3/uL (140-450); Red Blood Cells 5.21 10^6/uL (4.5-5.90); Red Cell Distribution Width 13.1 % (11.8-14.3); White Blood Cell 3.3 10^3/uL (4.4-10.8)
[2021-02-05 06:20] LABS: Calcium 9.2 mg/dL (8.5-10.1); Potassium 4.4 mmol/L (3.5-5.1)
[2021-02-05 06:25] LABS: Albumin 3.1 g/dL (3.4-5.0); Bilirubin, Total 0.6 mg/dL (0.2-1.0); Total Protein 7.7 g/dL (6.4-8.2)
[2021-02-05] MEDS: IPRATROPIUM BROMIDE HFA AER IN SCH ×3 (07:49→18:00)
[2021-02-05] MEDS: ALBUTEROL SULF HFA 90MCG INH 200DOSE IN PRN (07:50)
[2021-02-05 08:30] VITALS: BP 107/71
[2021-02-05] MEDS ORDERED: DexAMETHasone 4 MG TAB PO SCH (10:00)
[2021-02-05] MEDS: ZINC SULFATE 220mg CAP or TAB PO SCH (10:15)
[2021-02-05] MEDS: ASPirin 81 mg TAB PO SCH (10:15)
[2021-02-05] MEDS: CLOPIDOGREL BISULFATE 75 MG TAB PO SCH (10:15)
[2021-02-05] MEDS: PANTOPRAZOLE 40 MG TAB PO SCH (10:15)
[2021-02-05] MEDS: ASCORBIC ACID 1,000 MG TAB PO SCH (10:16)
[2021-02-05] MEDS: CHOLECALCIFEROL (VITD3) 2,000 UNIT CAP/TAB PO SCH (10:16)
[2021-02-05] MEDS: ENOXAPARIN SOD 40 MG/0.4 ML SYRINGE SC SCH (10:18)
[2021-02-05] MEDS: NICOTINE 21MG/24 HR TOPICAL PATCH TD SCH (10:19)
[2021-02-05 12:30] VITALS: BP 103/71
[2021-02-05] MEDS ORDERED: cefTRIAXone 1GM/50ML D5W 50 ML IV ONE (16:00)
[2021-02-05 16:54] VITALS: BP 111/71
[2021-02-05] MEDS: REMDESIVIR 100mg 100 MG in SODIUM CHL 0.9% 230 ML IV SCH (17:09)
[2021-02-05] MEDS: ATORVASTATIN 20 MG TAB PO SCH (21:29)
[2021-02-05] MEDS: DOXYCYCLINE 100 MG TAB/CAP PO SCH (21:29)
[2021-02-05 22:00] VITALS: BP 114/69
[2021-02-06] MEDS: MORPHINE SULF INJ 2 MG/ML SYRINGE 1ML IV PRN ×2 (03:23→19:51)
[2021-02-06 05:00] VITALS: BP 125/92
[2021-02-06] MEDS: metroNIDAZOLE 500MG/100ML 100 ML IV SCH (05:09)
[2021-02-06] MEDS: IPRATROPIUM BROMIDE HFA AER IN SCH ×4 (06:20→22:10)
[2021-02-06] MEDS: ALBUTEROL SULF HFA 90MCG INH 200DOSE IN PRN ×3 (06:21→22:10)
[2021-02-06 06:47] VITALS: BP 125/92
[2021-02-06 08:36] VITALS: BP 132/83
[2021-02-06] MEDS: ASPirin 81 mg TAB PO SCH (09:00)
[2021-02-06] MEDS ORDERED: cefTRIAXone 1GM/50ML D5W 50 ML IV SCH (09:00)
[2021-02-06] MEDS: DexAMETHasone SOD PHOS 10MG/1ML VIAL INJ IV SCH (09:00)
[2021-02-06] MEDS: CLOPIDOGREL BISULFATE 75 MG TAB PO SCH (09:01)
[2021-02-06] MEDS: ZINC SULFATE 220mg CAP or TAB PO SCH (09:01)
[2021-02-06] MEDS: PANTOPRAZOLE 40 MG TAB PO SCH (09:02)
[2021-02-06] MEDS: DOXYCYCLINE 100 MG TAB/CAP PO SCH ×2 (09:03→21:37)
[2021-02-06] MEDS: ASCORBIC ACID 1,000 MG TAB PO SCH (09:03)
[2021-02-06] MEDS: CHOLECALCIFEROL (VITD3) 2,000 UNIT CAP/TAB PO SCH (09:03)
[2021-02-06] MEDS: ENOXAPARIN SOD 40 MG/0.4 ML SYRINGE SC SCH (09:04)
[2021-02-06 13:21] VITALS: BP 122/96
[2021-02-06] MEDS ORDERED: FUROSEMIDE 40 MG/4 ML VIAL IV ONE (14:00)
[2021-02-06] MEDS: REMDESIVIR 100mg 100 MG in SODIUM CHL 0.9% 230 ML IV SCH (16:10)
[2021-02-06 16:27] VITALS: BP 129/78
[2021-02-06] MEDS: FUROSEMIDE 20 MG/2 ML VIAL IV SCH (18:00)
[2021-02-06] MEDS: ATORVASTATIN 20 MG TAB PO SCH (21:37)
[2021-02-06] MEDS: SACUBITRIL-VALSARTAN 24mg/26mg TAB PO SCH (21:37)
[2021-02-06] MEDS: CARVEDILOL 3.125 MG TAB PO SCH (21:37)
[2021-02-06 22:00] VITALS: BP 130/77
[2021-02-07] MEDS: MORPHINE SULF INJ 2 MG/ML SYRINGE 1ML IV PRN ×3 (00:05→21:22)
[2021-02-07 05:00] VITALS: BP 107/69
[2021-02-07] MEDS: FUROSEMIDE 20 MG/2 ML VIAL IV SCH ×2 (05:17→17:20)
[2021-02-07 06:42] LABS: Basophils # (auto) 0 10 ^3/uL (0-0.2); Basophils % (auto) 0.1 % (0.0-2.0); Eosinophils # (auto) 0 10 ^3/uL (0-0.8); Hematocrit 48.8 % (41.0-53.0); Hemoglobin 16.9 g/dL (13.5-17.5); Lymphocytes # (auto) 1.8 10 ^3/uL (0.4-5.4); Lymphocytes % (auto) 19.1 % (10.0-50.0); Mean Corpuscular Hemoglobin 31.2 pg (28.0-32.0); Mean Corpuscular Hgb Conc. 34.7 g/dL (32.0-36.0); Mean Corpuscular Volume 89.7 fL (80.0-100.0); Monocytes # (auto) 0.8 10 ^3/uL (0-1.3); Monocytes % (auto) 8.9 % (0.0-12.0); Neutrophils # (auto) 6.8 10 ^3/uL (1.6-8.6); Neutrophils % (auto) 71.9 % (37.0-80.0); Nucleated Red Blood Cells % 0.5 %; Platelet Count (auto) 238 10^3/uL (140-450); Red Blood Cells 5.44 10^6/uL (4.5-5.90); Red Cell Distribution Width 13.1 % (11.8-14.3); White Blood Cell 9.5 10^3/uL (4.4-10.8)
[2021-02-07 07:01] LABS: Potassium 3.3 mmol/L (3.5-5.1)
[2021-02-07 07:13] LABS: Albumin 3.1 g/dL (3.4-5.0); BUN/Creatinine Ratio 27.2; Bilirubin, Total 0.6 mg/dL (0.2-1.0); CRP High Sensitivity 1.13 mg/dL (< 0.3); Total Protein 7.4 g/dL (6.4-8.2)
[2021-02-07] MEDS: ALBUTEROL SULF HFA 90MCG INH 200DOSE IN PRN ×2 (07:42→19:41)
[2021-02-07] MEDS: IPRATROPIUM BROMIDE HFA AER IN SCH ×4 (07:43→19:41)
[2021-02-07 08:40] VITALS: BP 106/75
[2021-02-07] MEDS ORDERED: POTASSIUM CHL 20 Meq TABLET PO ONE (09:30)
[2021-02-07] MEDS: ASPirin 81 mg TAB PO SCH (10:51)
[2021-02-07] MEDS: ZINC SULFATE 220mg CAP or TAB PO SCH (10:51)
[2021-02-07] MEDS: DexAMETHasone SOD PHOS 10MG/1ML VIAL INJ IV SCH (10:51)
[2021-02-07] MEDS: SACUBITRIL-VALSARTAN 24mg/26mg TAB PO SCH ×2 (10:53→21:15)
[2021-02-07] MEDS: CLOPIDOGREL BISULFATE 75 MG TAB PO SCH (10:53)
[2021-02-07] MEDS: CARVEDILOL 3.125 MG TAB PO SCH ×2 (10:53→21:15)
[2021-02-07] MEDS: PANTOPRAZOLE 40 MG TAB PO SCH (10:53)
[2021-02-07] MEDS: DOXYCYCLINE 100 MG TAB/CAP PO SCH ×2 (10:54→21:15)
[2021-02-07] MEDS: ASCORBIC ACID 1,000 MG TAB PO SCH (10:54)
[2021-02-07] MEDS: ENOXAPARIN SOD 40 MG/0.4 ML SYRINGE SC SCH (10:55)
[2021-02-07] MEDS: CHOLECALCIFEROL (VITD3) 2,000 UNIT CAP/TAB PO SCH (10:55)
[2021-02-07] MEDS ORDERED: LOPERAMIDE 1 mg/7.5ml ORAL soln GT ONE (12:30)
[2021-02-07] MEDS ORDERED: LOPERAMIDE 1 mg/7.5ml ORAL soln PO ONE (12:45)
[2021-02-07 12:54] VITALS: BP 113/73
[2021-02-07] MEDS: REMDESIVIR 100mg 100 MG in SODIUM CHL 0.9% 230 ML IV SCH (15:00)
[2021-02-07 16:31] VITALS: BP 122/77
[2021-02-07] MEDS: ATORVASTATIN 20 MG TAB PO SCH (21:16)
[2021-02-07 22:00] VITALS: BP 114/82
[2021-02-08] MEDS: MORPHINE SULF INJ 2 MG/ML SYRINGE 1ML IV PRN ×4 (01:27→21:52)
[2021-02-08 05:22] VITALS: BP 104/69
[2021-02-08] MEDS: FUROSEMIDE 20 MG/2 ML VIAL IV SCH ×2 (05:58→18:16)
[2021-02-08 07:08] LABS: Albumin 2.9 g/dL (3.4-5.0); Calcium 8.7 mg/dL (8.5-10.1); Potassium 3.6 mmol/L (3.5-5.1)
[2021-02-08 07:10] LABS: BUN/Creatinine Ratio 29.3; Bilirubin, Total 0.8 mg/dL (0.2-1.0); Total Protein 7.4 g/dL (6.4-8.2)
[2021-02-08] MEDS: IPRATROPIUM BROMIDE HFA AER IN SCH ×3 (08:17→22:40)
[2021-02-08] MEDS ORDERED: IOHEXOL 350 MG/ML 100ML IJ ONE (08:18)
[2021-02-08 09:13] VITALS: BP 104/63
[2021-02-08] MEDS: DexAMETHasone SOD PHOS 10MG/1ML VIAL INJ IV SCH (10:38)
[2021-02-08] MEDS: ASPirin 81 mg TAB PO SCH (10:38)
[2021-02-08] MEDS: ZINC SULFATE 220mg CAP or TAB PO SCH (10:38)
[2021-02-08] MEDS: SACUBITRIL-VALSARTAN 24mg/26mg TAB PO SCH ×2 (10:39→21:49)
[2021-02-08] MEDS: CARVEDILOL 3.125 MG TAB PO SCH ×2 (10:39→21:49)
[2021-02-08] MEDS: POTASSIUM CHL 20 Meq TABLET PO SCH (10:39)
[2021-02-08] MEDS: CLOPIDOGREL BISULFATE 75 MG TAB PO SCH (10:40)
[2021-02-08] MEDS: PANTOPRAZOLE 40 MG TAB PO SCH (10:40)
[2021-02-08] MEDS: ASCORBIC ACID 1,000 MG TAB PO SCH (10:41)
[2021-02-08] MEDS: DOXYCYCLINE 100 MG TAB/CAP PO SCH ×2 (10:41→21:49)
[2021-02-08] MEDS: CHOLECALCIFEROL (VITD3) 2,000 UNIT CAP/TAB PO SCH (10:42)
[2021-02-08] MEDS: ENOXAPARIN SOD 40 MG/0.4 ML SYRINGE SC SCH (10:43)
[2021-02-08 12:56] VITALS: BP 94/64
[2021-02-08] MEDS: REMDESIVIR 100mg 100 MG in SODIUM CHL 0.9% 230 ML IV SCH (15:00)
[2021-02-08 17:10] VITALS: BP 108/68
[2021-02-08] MEDS: ATORVASTATIN 20 MG TAB PO SCH (21:49)
[2021-02-08 22:00] VITALS: BP 105/66
[2021-02-08] MEDS: ALBUTEROL SULF HFA 90MCG INH 200DOSE IN PRN (22:42)
[2021-02-09] MEDS: MORPHINE SULF INJ 2 MG/ML SYRINGE 1ML IV PRN ×3 (02:06→18:34)
[2021-02-09 05:00] VITALS: BP 109/73
[2021-02-09] MEDS ORDERED: LOPERAMIDE 1 mg/7.5ml ORAL soln PO PRN (05:45)
[2021-02-09] MEDS: FUROSEMIDE 20 MG/2 ML VIAL IV SCH ×2 (06:26→17:23)
[2021-02-09] MEDS: IPRATROPIUM BROMIDE HFA AER IN SCH ×4 (06:30→22:19)
[2021-02-09] MEDS: ALBUTEROL SULF HFA 90MCG INH 200DOSE IN PRN ×3 (06:42→22:20)
[2021-02-09 07:07] LABS: Basophils # (auto) 0 10 ^3/uL (0-0.2); Basophils % (auto) 0.1 % (0.0-2.0); Eosinophils # (auto) 0 10 ^3/uL (0-0.8); Eosinophils % (auto) 0.1 % (0.0-7.0); Hematocrit 48.4 % (41.0-53.0); Hemoglobin 16.6 g/dL (13.5-17.5); Lymphocytes # (auto) 1.6 10 ^3/uL (0.4-5.4); Lymphocytes % (auto) 11.6 % (10.0-50.0); Mean Corpuscular Hemoglobin 30.9 pg (28.0-32.0); Mean Corpuscular Hgb Conc. 34.3 g/dL (32.0-36.0); Mean Corpuscular Volume 90.3 fL (80.0-100.0); Monocytes # (auto) 0.6 10 ^3/uL (0-1.3); Monocytes % (auto) 4.3 % (0.0-12.0); Neutrophils # (auto) 11.4 10 ^3/uL (1.6-8.6); Neutrophils % (auto) 83.9 % (37.0-80.0); Nucleated Red Blood Cells % 0.1 %; Platelet Count (auto) 294 10^3/uL (140-450); Red Blood Cells 5.36 10^6/uL (4.5-5.90); Red Cell Distribution Width 13.1 % (11.8-14.3); White Blood Cell 13.6 10^3/uL (4.4-10.8)
[2021-02-09 07:23] LABS: BUN/Creatinine Ratio 33.3; Calcium 8.7 mg/dL (8.5-10.1); Potassium 3.7 mmol/L (3.5-5.1)
[2021-02-09 08:31] VITALS: BP 109/73
[2021-02-09 09:00] VITALS: BP 107/80
[2021-02-09] MEDS: DexAMETHasone SOD PHOS 10MG/1ML VIAL INJ IV SCH (09:09)
[2021-02-09] MEDS: ASPirin 81 mg TAB PO SCH (09:09)
[2021-02-09] MEDS: ZINC SULFATE 220mg CAP or TAB PO SCH (09:10)
[2021-02-09] MEDS: SACUBITRIL-VALSARTAN 24mg/26mg TAB PO SCH ×2 (09:11→22:12)
[2021-02-09] MEDS: CARVEDILOL 3.125 MG TAB PO SCH ×2 (09:11→22:11)
[2021-02-09] MEDS: POTASSIUM CHL 20 Meq TABLET PO SCH (09:11)
[2021-02-09] MEDS: CLOPIDOGREL BISULFATE 75 MG TAB PO SCH (09:11)
[2021-02-09] MEDS: PANTOPRAZOLE 40 MG TAB PO SCH (09:11)
[2021-02-09] MEDS: ASCORBIC ACID 1,000 MG TAB PO SCH (09:12)
[2021-02-09] MEDS: CHOLECALCIFEROL (VITD3) 2,000 UNIT CAP/TAB PO SCH (09:12)
[2021-02-09] MEDS: DOXYCYCLINE 100 MG TAB/CAP PO SCH ×2 (09:12→22:12)
[2021-02-09] MEDS: ENOXAPARIN SOD 40 MG/0.4 ML SYRINGE SC SCH (09:13)
[2021-02-09] MEDS ORDERED: FUROSEMIDE 40 MG/4 ML VIAL IV ONE (12:00)
[2021-02-09 13:00] VITALS: BP 100/70
[2021-02-09 17:14] VITALS: BP 94/66
[2021-02-09 22:00] VITALS: BP 105/67
[2021-02-09] MEDS: ATORVASTATIN 20 MG TAB PO SCH (22:12)
[2021-02-10] MEDS: MORPHINE SULF INJ 2 MG/ML SYRINGE 1ML IV PRN ×2 (00:49→21:05)
[2021-02-10 05:00] VITALS: BP 108/60
[2021-02-10 05:59] LABS: Basophils # (auto) 0 10 ^3/uL (0-0.2); Basophils % (auto) 0.1 % (0.0-2.0); Eosinophils # (auto) 0 10 ^3/uL (0-0.8); Eosinophils % (auto) 0.1 % (0.0-7.0); Hematocrit 50.4 % (41.0-53.0); Hemoglobin 17.3 g/dL (13.5-17.5); Lymphocytes # (auto) 1.3 10 ^3/uL (0.4-5.4); Lymphocytes % (auto) 10.1 % (10.0-50.0); Mean Corpuscular Hemoglobin 31.2 pg (28.0-32.0); Mean Corpuscular Hgb Conc. 34.3 g/dL (32.0-36.0); Monocytes # (auto) 0.5 10 ^3/uL (0-1.3); Monocytes % (auto) 3.5 % (0.0-12.0); Neutrophils # (auto) 11.4 10 ^3/uL (1.6-8.6); Neutrophils % (auto) 86.2 % (37.0-80.0); Nucleated Red Blood Cells % 0.3 %; Platelet Count (auto) 366 10^3/uL (140-450); Red Blood Cells 5.54 10^6/uL (4.5-5.90); Red Cell Distribution Width 13.1 % (11.8-14.3); White Blood Cell 13.2 10^3/uL (4.4-10.8)
[2021-02-10] MEDS: FUROSEMIDE 20 MG/2 ML VIAL IV SCH ×2 (06:00→18:10)
[2021-02-10 06:13] LABS: Potassium 4.2 mmol/L (3.5-5.1)
[2021-02-10 06:18] LABS: BUN/Creatinine Ratio 33.7; Calcium 9.3 mg/dL (8.5-10.1)
[2021-02-10] MEDS: IPRATROPIUM BROMIDE HFA AER IN SCH ×4 (07:44→23:02)
[2021-02-10 09:00] VITALS: BP 106/73
[2021-02-10] MEDS: CARVEDILOL 3.125 MG TAB PO SCH ×2 (09:20→22:00)
[2021-02-10] MEDS: ASPirin 81 mg TAB PO SCH (09:20)
[2021-02-10] MEDS: ZINC SULFATE 220mg CAP or TAB PO SCH (09:20)
[2021-02-10] MEDS: CLOPIDOGREL BISULFATE 75 MG TAB PO SCH (09:21)
[2021-02-10] MEDS: PANTOPRAZOLE 40 MG TAB PO SCH (09:21)
[2021-02-10] MEDS: POTASSIUM CHL 20 Meq TABLET PO SCH (09:21)
[2021-02-10] MEDS: SACUBITRIL-VALSARTAN 24mg/26mg TAB PO SCH ×2 (09:21→22:00)
[2021-02-10] MEDS: CHOLECALCIFEROL (VITD3) 2,000 UNIT CAP/TAB PO SCH (09:22)
[2021-02-10] MEDS: DOXYCYCLINE 100 MG TAB/CAP PO SCH ×2 (09:22→22:00)
[2021-02-10] MEDS: ASCORBIC ACID 1,000 MG TAB PO SCH (09:22)
[2021-02-10] MEDS: DexAMETHasone SOD PHOS 10MG/1ML VIAL INJ IV SCH (09:23)
[2021-02-10] MEDS: ENOXAPARIN SOD 40 MG/0.4 ML SYRINGE SC SCH (09:23)
[2021-02-10 12:43] VITALS: BP 103/69
[2021-02-10] MEDS ORDERED: HYDROmorphone HCL 2 MG/ML VL IV ONE (15:30)
[2021-02-10 17:00] VITALS: BP 95/69
[2021-02-10] MEDS: ALBUTEROL SULF HFA 90MCG INH 200DOSE IN PRN (19:12)
[2021-02-10 22:00] VITALS: BP 99/65
[2021-02-10] MEDS: ATORVASTATIN 20 MG TAB PO SCH (22:00)
[2021-02-11] MEDS: MORPHINE SULF INJ 2 MG/ML SYRINGE 1ML IV PRN ×3 (02:35→22:24)
[2021-02-11 05:00] VITALS: BP 103/71
[2021-02-11] MEDS: IPRATROPIUM BROMIDE HFA AER IN SCH ×4 (06:08→22:00)
[2021-02-11] MEDS: FUROSEMIDE 20 MG/2 ML VIAL IV SCH ×2 (06:30→18:25)
[2021-02-11 06:57] LABS: Potassium 3.9 mmol/L (3.5-5.1)
[2021-02-11 07:03] LABS: Basophils # (auto) 0 10 ^3/uL (0-0.2); Basophils % (auto) 0.1 % (0.0-2.0); Eosinophils # (auto) 0.1 10 ^3/uL (0-0.8); Eosinophils % (auto) 0.5 % (0.0-7.0); Hematocrit 48.8 % (41.0-53.0); Hemoglobin 16.6 g/dL (13.5-17.5); Lymphocytes # (auto) 1.2 10 ^3/uL (0.4-5.4); Lymphocytes % (auto) 8.1 % (10.0-50.0); Mean Corpuscular Hemoglobin 30.8 pg (28.0-32.0); Mean Corpuscular Volume 90.7 fL (80.0-100.0); Monocytes # (auto) 0.6 10 ^3/uL (0-1.3); Monocytes % (auto) 3.9 % (0.0-12.0); Neutrophils # (auto) 13.3 10 ^3/uL (1.6-8.6); Neutrophils % (auto) 87.4 % (37.0-80.0); Nucleated Red Blood Cells % 0.1 %; Platelet Count (auto) 414 10^3/uL (140-450); Red Blood Cells 5.37 10^6/uL (4.5-5.90); White Blood Cell 15.2 10^3/uL (4.4-10.8)
[2021-02-11 07:14] LABS: Calcium 8.8 mg/dL (8.5-10.1)
[2021-02-11 09:00] VITALS: BP 106/65
[2021-02-11] MEDS: DexAMETHasone SOD PHOS 10MG/1ML VIAL INJ IV SCH (10:04)
[2021-02-11] MEDS: ZINC SULFATE 220mg CAP or TAB PO SCH (10:05)
[2021-02-11] MEDS: SACUBITRIL-VALSARTAN 24mg/26mg TAB PO SCH ×2 (10:05→22:12)
[2021-02-11] MEDS: ASPirin 81 mg TAB PO SCH (10:05)
[2021-02-11] MEDS: CARVEDILOL 3.125 MG TAB PO SCH ×2 (10:05→22:11)
[2021-02-11] MEDS: POTASSIUM CHL 20 Meq TABLET PO SCH (10:06)
[2021-02-11] MEDS: CLOPIDOGREL BISULFATE 75 MG TAB PO SCH (10:06)
[2021-02-11] MEDS: CHOLECALCIFEROL (VITD3) 2,000 UNIT CAP/TAB PO SCH (10:07)
[2021-02-11] MEDS: ASCORBIC ACID 1,000 MG TAB PO SCH (10:07)
[2021-02-11] MEDS: PANTOPRAZOLE 40 MG TAB PO SCH (10:07)
[2021-02-11] MEDS: ENOXAPARIN SOD 40 MG/0.4 ML SYRINGE SC SCH (10:07)
[2021-02-11] MEDS: DOXYCYCLINE 100 MG TAB/CAP PO SCH ×2 (10:07→22:12)
[2021-02-11 13:00] VITALS: BP 96/69
[2021-02-11 17:00] VITALS: BP 112/71
[2021-02-11 21:46] VITALS: BP 109/66
[2021-02-11] MEDS: ALBUTEROL SULF HFA 90MCG INH 200DOSE IN PRN (22:01)
[2021-02-11] MEDS: ATORVASTATIN 20 MG TAB PO SCH (22:12)
[2021-02-12 04:56] VITALS: BP 107/71
[2021-02-12] MEDS: MORPHINE SULF INJ 2 MG/ML SYRINGE 1ML IV PRN ×2 (05:04→19:32)
[2021-02-12] MEDS: FUROSEMIDE 20 MG/2 ML VIAL IV SCH ×2 (06:23→17:50)
[2021-02-12] MEDS: IPRATROPIUM BROMIDE HFA AER IN SCH ×4 (07:00→22:00)
[2021-02-12] MEDS: ENOXAPARIN SOD 40 MG/0.4 ML SYRINGE SC SCH (08:52)
[2021-02-12] MEDS: CLOPIDOGREL BISULFATE 75 MG TAB PO SCH (08:52)
[2021-02-12] MEDS: ASPirin 81 mg TAB PO SCH (08:52)
[2021-02-12] MEDS: POTASSIUM CHL 20 Meq TABLET PO SCH (08:52)
[2021-02-12] MEDS: ASCORBIC ACID 1,000 MG TAB PO SCH (08:52)
[2021-02-12] MEDS: ZINC SULFATE 220mg CAP or TAB PO SCH (08:52)
[2021-02-12] MEDS: DOXYCYCLINE 100 MG TAB/CAP PO SCH ×2 (08:53→21:42)
[2021-02-12] MEDS: CHOLECALCIFEROL (VITD3) 2,000 UNIT CAP/TAB PO SCH (08:53)
[2021-02-12] MEDS: DexAMETHasone SOD PHOS 10MG/1ML VIAL INJ IV SCH (08:53)
[2021-02-12] MEDS: PANTOPRAZOLE 40 MG TAB PO SCH (08:53)
[2021-02-12 09:13] VITALS: BP 104/74
[2021-02-12] MEDS: SACUBITRIL-VALSARTAN 24mg/26mg TAB PO SCH ×2 (09:14→21:42)
[2021-02-12] MEDS: ACETAMINOPHEN 500 MG TAB PO PRN ×2 (09:15→21:43)
[2021-02-12] MEDS: CARVEDILOL 3.125 MG TAB PO SCH ×2 (09:15→21:48)
[2021-02-12 09:38] VITALS: BP 104/74
[2021-02-12 13:00] VITALS: BP 97/65
[2021-02-12 16:58] VITALS: BP 91/65
[2021-02-12 21:42] VITALS: BP 96/64
[2021-02-12] MEDS: ATORVASTATIN 20 MG TAB PO SCH (21:42)
[2021-02-13] MEDS: MORPHINE SULF INJ 2 MG/ML SYRINGE 1ML IV PRN ×2 (03:28→22:02)
[2021-02-13 04:58] VITALS: BP 96/68
[2021-02-13] MEDS: FUROSEMIDE 20 MG/2 ML VIAL IV SCH ×2 (06:00→18:21)
[2021-02-13] MEDS: ALBUTEROL SULF HFA 90MCG INH 200DOSE IN PRN ×2 (06:00→19:48)
[2021-02-13] MEDS: IPRATROPIUM BROMIDE HFA AER IN SCH ×3 (06:00→19:43)
[2021-02-13 08:24] VITALS: BP 102/63
[2021-02-13] MEDS: DexAMETHasone SOD PHOS 10MG/1ML VIAL INJ IV SCH (10:18)
[2021-02-13] MEDS: ASPirin 81 mg TAB PO SCH (10:19)
[2021-02-13] MEDS: ZINC SULFATE 220mg CAP or TAB PO SCH (10:19)
[2021-02-13] MEDS: CARVEDILOL 3.125 MG TAB PO SCH ×2 (10:20→22:01)
[2021-02-13] MEDS: SACUBITRIL-VALSARTAN 24mg/26mg TAB PO SCH ×2 (10:20→22:00)
[2021-02-13] MEDS: POTASSIUM CHL 20 Meq TABLET PO SCH (10:21)
[2021-02-13] MEDS: ASCORBIC ACID 1,000 MG TAB PO SCH (10:26)
[2021-02-13] MEDS: DOXYCYCLINE 100 MG TAB/CAP PO SCH ×2 (10:26→22:00)
[2021-02-13] MEDS: PANTOPRAZOLE 40 MG TAB PO SCH (10:26)
[2021-02-13] MEDS: CLOPIDOGREL BISULFATE 75 MG TAB PO SCH (10:26)
[2021-02-13] MEDS: ENOXAPARIN SOD 40 MG/0.4 ML SYRINGE SC SCH (10:26)
[2021-02-13] MEDS: CHOLECALCIFEROL (VITD3) 2,000 UNIT CAP/TAB PO SCH (10:53)
[2021-02-13 13:00] VITALS: BP 100/70
[2021-02-13 16:48] VITALS: BP 104/69
[2021-02-13 22:00] VITALS: BP 121/63
[2021-02-13] MEDS: ATORVASTATIN 20 MG TAB PO SCH (22:00)
[2021-02-14 05:00] VITALS: BP 103/75
[2021-02-14] MEDS: FUROSEMIDE 20 MG/2 ML VIAL IV SCH (05:51)
[2021-02-14 06:10] LABS: Basophils # (auto) 0 10 ^3/uL (0-0.2); Basophils % (auto) 0.1 % (0.0-2.0); Eosinophils # (auto) 0 10 ^3/uL (0-0.8); Eosinophils % (auto) 0.1 % (0.0-7.0); Nucleated Red Blood Cells % 0.1 %
[2021-02-14 06:11] LABS: Hemoglobin 16.4 g/dL (13.5-17.5); Lymphocytes # (auto) 1.1 10 ^3/uL (0.4-5.4); Lymphocytes % (auto) 7.7 % (10.0-50.0); Mean Corpuscular Hemoglobin 31.2 pg (28.0-32.0); Mean Corpuscular Hgb Conc. 34.2 g/dL (32.0-36.0); Mean Corpuscular Volume 91.2 fL (80.0-100.0); Monocytes # (auto) 0.8 10 ^3/uL (0-1.3); Monocytes % (auto) 5.6 % (0.0-12.0); Neutrophils # (auto) 12.5 10 ^3/uL (1.6-8.6); Neutrophils % (auto) 86.5 % (37.0-80.0); Platelet Count (auto) 459 10^3/uL (140-450); Red Blood Cells 5.26 10^6/uL (4.5-5.90); White Blood Cell 14.4 10^3/uL (4.4-10.8)
[2021-02-14 06:30] LABS: Potassium 4.3 mmol/L (3.5-5.1)
[2021-02-14 06:35] LABS: BUN/Creatinine Ratio 37.8; Calcium 8.7 mg/dL (8.5-10.1)
[2021-02-14] MEDS: IPRATROPIUM BROMIDE HFA AER IN SCH ×2 (07:40→12:00)
[2021-02-14 08:27] VITALS: BP 101/62
[2021-02-14] MEDS: ALBUTEROL SULF HFA 90MCG INH 200DOSE IN PRN (08:55)
[2021-02-14] MEDS: ZINC SULFATE 220mg CAP or TAB PO SCH (11:38)
[2021-02-14] MEDS: DexAMETHasone SOD PHOS 10MG/1ML VIAL INJ IV SCH (11:38)
[2021-02-14] MEDS: ASPirin 81 mg TAB PO SCH (11:38)
[2021-02-14] MEDS: CARVEDILOL 3.125 MG TAB PO SCH (11:39)
[2021-02-14] MEDS: SACUBITRIL-VALSARTAN 24mg/26mg TAB PO SCH (11:39)
[2021-02-14] MEDS: CHOLECALCIFEROL (VITD3) 2,000 UNIT CAP/TAB PO SCH (11:40)
[2021-02-14] MEDS: PANTOPRAZOLE 40 MG TAB PO SCH (11:40)
[2021-02-14] MEDS: POTASSIUM CHL 20 Meq TABLET PO SCH (11:40)
[2021-02-14] MEDS: DOXYCYCLINE 100 MG TAB/CAP PO SCH (11:40)
[2021-02-14] MEDS: CLOPIDOGREL BISULFATE 75 MG TAB PO SCH (11:40)
[2021-02-14] MEDS: ASCORBIC ACID 1,000 MG TAB PO SCH (11:40)
[2021-02-14] MEDS: ENOXAPARIN SOD 40 MG/0.4 ML SYRINGE SC SCH (11:41)
== END 2021-02-14 12:24 | disposition left against medical advice (07) | DRG 871 ==
LOC: ER 13:05 → EDBD 13:05 → TELE 13:06 → DOU IN ICU 16:04 → TELE-EAST 02-04 02:25
PROVIDERS: ADMIT Nurse Practitioner Acute Care; ATTEND Internal Medicine Pulmonary Disease
PROC: B2111ZZ Fluoroscopy of Multiple Coronary Arteries using Low Osmolar Contrast (ICD-10-PCS; principal; 2021-02-03)
PROC: B2151ZZ Fluoroscopy of Left Heart using Low Osmolar Contrast (ICD-10-PCS; 2021-02-03)
PROC: 4A023N7 Measurement of Cardiac Sampling and Pressure, Left Heart, Percutaneous Approach (ICD-10-PCS; 2021-02-03)
PROC: XW033E5 Introduction of Remdesivir Anti-infective into Peripheral Vein, Percutaneous Approach, New Technology Group 5 (ICD-10-PCS; 2021-02-04)
PROC: 05HB33Z Insertion of Infusion Device into Right Basilic Vein, Percutaneous Approach (ICD-10-PCS; 2021-02-06)
PROC: B54MZZA Ultrasonography of Right Upper Extremity Veins, Guidance (ICD-10-PCS; 2021-02-06)
DX: A41.89 Other specified sepsis (principal); U07.1 COVID-19; N17.0 Acute kidney failure with tubular necrosis; J12.82 Pneumonia due to coronavirus disease 2019; J96.01 Acute respiratory failure with hypoxia; I50.23 Acute on chronic systolic (congestive) heart failure; I24.9 Acute ischemic heart disease, unspecified; R65.20 Severe sepsis without septic shock; I25.10 Atherosclerotic heart disease of native coronary artery without angina pectoris; Z53.29 Procedure and treatment not carried out because of patient's decision for other reasons; J44.9 Chronic obstructive pulmonary disease, unspecified; E78.5 Hyperlipidemia, unspecified; I11.0 Hypertensive heart disease with heart failure; I25.2 Old myocardial infarction; Z72.0 Tobacco use; Z79.02 Long term (current) use of antithrombotics/antiplatelets; Z82.49 Family history of ischemic heart disease and other diseases of the circulatory system; Z95.5 Presence of coronary angioplasty implant and graft; Z90.49 Acquired absence of other specified parts of digestive tract
CPT/HCPCS: 36415; 36600; 71045; 71275; 80048; 80053; 82728; 82805; 83735; 83880; 84484; 85025; 85379; 85610; 85730; 86141; 87081; 87426; 87493; 93005; 94640; 96361; 96374; 96375; 99152; G0378; J0696; J1100; J2250; J2405; J3490; Q9967

== ENCOUNTER 2021-03-12 15:02 | Inpatient (IN) | payer MEDICARE ==
[~2021-03-12] VITALS: Ht 190.5 cm; Wt 71.5 kg
[~2021-03-12 15:02] MED LIST changes: +ALBUAER3 IN; +ASCO10003 PO; +CHOL500023 PO; +FURO1TAB33 PO; +POTA1TAB61 PO; +ZINC220T6 PO
[2021-03-12 15:58] LABS: Basophils # (auto) 0 10 ^3/uL (0-0.2); Basophils % (auto) 0.3 % (0.0-2.0); Eosinophils # (auto) 0.1 10 ^3/uL (0-0.8); Eosinophils % (auto) 0.4 % (0.0-7.0); Hematocrit 40.3 % (41.0-53.0); Hemoglobin 13.7 g/dL (13.5-17.5); Mean Corpuscular Hemoglobin 31.2 pg (28.0-32.0); Mean Corpuscular Hgb Conc. 34.1 g/dL (32.0-36.0); Mean Corpuscular Volume 91.7 fL (80.0-100.0); Monocytes # (auto) 0.4 10 ^3/uL (0-1.3); Monocytes % (auto) 2.8 % (0.0-12.0); Neutrophils # (auto) 13.2 10 ^3/uL (1.6-8.6); Neutrophils % (auto) 89.5 % (37.0-80.0); Nucleated Red Blood Cells % 0.1 %; Platelet Count (auto) 175 10^3/uL (140-450); Red Blood Cells 4.39 10^6/uL (4.5-5.90); Red Cell Distribution Width 14.1 % (11.8-14.3); White Blood Cell 14.7 10^3/uL (4.4-10.8)
[2021-03-12 16:20] LABS: Albumin 2.7 g/dL (3.4-5.0); Calcium 8.5 mg/dL (8.5-10.1); Potassium 4.1 mmol/L (3.5-5.1)
[2021-03-12 16:26] LABS: INR 1.28 (0.9-1.15); Partial Thromboplastin Time 22.8 sec (23.0-31.2)
[2021-03-12 16:34] LABS: Bilirubin, Total 0.6 mg/dL (0.2-1.0); Total Protein 5.8 g/dL (6.4-8.2)
[2021-03-12] MEDS ORDERED: CHOLECALCIFEROL (VITD3) 2,000 UNIT CAP/TAB PO ONE (17:00)
[2021-03-12] MEDS ORDERED: cefTRIAXone 1GM/50ML D5W 50 ML IV ONE (17:00)
[2021-03-12] MEDS ORDERED: AZITHROMYCIN 500MG/ 250ML 250 ML IV ONE (17:00)
[2021-03-12] MEDS ORDERED: FUROSEMIDE 40 MG/4 ML VIAL IV ONE (17:00)
[2021-03-12 17:11] LABS: Urine Bacteria NONE SEEN /hpf (None Seen); Urine Blood Negative /uL (Negative); Urine Hyaline Cast FEW /lpf (0 - 2); Urine Mucus FEW (None Seen); Urine Specific Gravity 1.017 (1.001-1.035); Urine WBC 111 /hpf (0 - 3)
[2021-03-12] MEDS ORDERED: ONDANSETRON HCL 4 MG/2 ML VIAL IV PRN (20:00)
[2021-03-12] MEDS ORDERED: MORPHINE SULF INJ 2 MG/ML SYRINGE 1ML IV PRN (20:00)
[2021-03-12 23:55] VITALS: BP 141/94
[2021-03-13 01:56] VITALS: BP 118/97
[2021-03-13 05:00] VITALS: BP 127/80
[2021-03-13] MEDS: FUROSEMIDE 40 MG/4 ML VIAL IV SCH ×2 (05:30→18:43)
[2021-03-13 06:36] LABS: Basophils # (auto) 0 10 ^3/uL (0-0.2); Basophils % (auto) 0.3 % (0.0-2.0); Eosinophils # (auto) 0.2 10 ^3/uL (0-0.8); Eosinophils % (auto) 1.2 % (0.0-7.0); Hemoglobin 14.4 g/dL (13.5-17.5); Lymphocytes # (auto) 2.2 10 ^3/uL (0.4-5.4); Lymphocytes % (auto) 14.7 % (10.0-50.0); Mean Corpuscular Hemoglobin 30.4 pg (28.0-32.0); Mean Corpuscular Hgb Conc. 33.5 g/dL (32.0-36.0); Mean Corpuscular Volume 90.8 fL (80.0-100.0); Monocytes # (auto) 1.1 10 ^3/uL (0-1.3); Monocytes % (auto) 7.7 % (0.0-12.0); Neutrophils # (auto) 11.3 10 ^3/uL (1.6-8.6); Neutrophils % (auto) 76.1 % (37.0-80.0); Nucleated Red Blood Cells % 0.1 %; Platelet Count (auto) 150 10^3/uL (140-450); Red Blood Cells 4.74 10^6/uL (4.5-5.90); Red Cell Distribution Width 14.5 % (11.8-14.3); White Blood Cell 14.8 10^3/uL (4.4-10.8)
[2021-03-13 06:51] LABS: Albumin 2.9 g/dL (3.4-5.0); BUN/Creatinine Ratio 25.2; Calcium 8.7 mg/dL (8.5-10.1); Potassium 3.3 mmol/L (3.5-5.1)
[2021-03-13 06:59] LABS: Bilirubin, Total 0.6 mg/dL (0.2-1.0)
[2021-03-13 08:00] VITALS: BP 119/90
[2021-03-13] MEDS ORDERED: POTASSIUM CHL 20 Meq TABLET PO ONE (08:30)
[2021-03-13] MEDS: BUDESONIDE (INHALATION) 0.5 MG/2 ML NEB NEB SCH ×2 (09:07→22:19)
[2021-03-13] MEDS: ALBUTEROL SULF 2.5 MG/0.5ML(0.5%) NEB SOLN NEB PRN ×2 (09:08→22:26)
[2021-03-13] MEDS: ASPirin 81 mg TAB PO SCH (09:47)
[2021-03-13] MEDS: CARVEDILOL 3.125 MG TAB PO SCH ×2 (09:48→22:00)
[2021-03-13] MEDS: SACUBITRIL-VALSARTAN 24mg/26mg TAB PO SCH ×2 (09:49→22:14)
[2021-03-13] MEDS: CLOPIDOGREL BISULFATE 75 MG TAB PO SCH (09:49)
[2021-03-13] MEDS: PANTOPRAZOLE 40 MG TAB PO SCH (09:50)
[2021-03-13] MEDS: ASCORBIC ACID 500 MG TAB PO SCH (09:50)
[2021-03-13] MEDS: CHOLECALCIFEROL (VITD3) 1,000UNIT=25mCg TAB PO SCH (09:50)
[2021-03-13] MEDS: POTASSIUM CHL 20 Meq TABLET PO SCH (09:51)
[2021-03-13 12:00] VITALS: BP 98/71
[2021-03-13] MEDS: PIPERACILLIN-TAZOB 3.375GM 100 ML IV SCH ×3 (12:02→23:52)
[2021-03-13] MEDS: AZITHROMYCIN 500MG/ 250ML 250 ML IV SCH (15:45)
[2021-03-13] MEDS: LOPERAMIDE HCL 2 MG CAP PO PRN (15:45)
[2021-03-13 16:00] VITALS: BP 106/74
[2021-03-13 22:00] VITALS: BP 93/70
[2021-03-13] MEDS: ATORVASTATIN 20 MG TAB PO SCH (22:15)
[2021-03-13] MEDS ORDERED: ENOXAPARIN SOD 40 MG/0.4 ML SYRINGE SC ONE (22:15)
[2021-03-14 05:00] VITALS: BP 89/64
[2021-03-14] MEDS: PIPERACILLIN-TAZOB 3.375GM 100 ML IV SCH ×4 (05:44→23:47)
[2021-03-14] MEDS: FUROSEMIDE 40 MG/4 ML VIAL IV SCH ×3 (05:58→18:00)
[2021-03-14] MEDS: BUDESONIDE (INHALATION) 0.5 MG/2 ML NEB NEB SCH ×2 (06:15→22:53)
[2021-03-14 07:49] VITALS: BP 88/61
[2021-03-14] MEDS ORDERED: ENOXAPARIN SOD 40 MG/0.4 ML SYRINGE SC SCH (10:00)
[2021-03-14] MEDS: CHOLECALCIFEROL (VITD3) 1,000UNIT=25mCg TAB PO SCH (10:00)
[2021-03-14] MEDS: SACUBITRIL-VALSARTAN 24mg/26mg TAB PO SCH ×2 (10:00→22:00)
[2021-03-14] MEDS: AZITHROMYCIN 500MG/ 250ML 250 ML IV SCH (10:00)
[2021-03-14] MEDS: CARVEDILOL 3.125 MG TAB PO SCH ×2 (10:00→22:00)
[2021-03-14] MEDS: ASPirin 81 mg TAB PO SCH (10:54)
[2021-03-14] MEDS: CLOPIDOGREL BISULFATE 75 MG TAB PO SCH (10:55)
[2021-03-14] MEDS: PANTOPRAZOLE 40 MG TAB PO SCH (10:55)
[2021-03-14] MEDS: POTASSIUM CHL 20 Meq TABLET PO SCH (10:55)
[2021-03-14] MEDS: ASCORBIC ACID 500 MG TAB PO SCH (10:56)
[2021-03-14 12:00] VITALS: BP 84/62
[2021-03-14] MEDS: ALPRAZolam 0.5 MG TAB PO PRN (16:51)
[2021-03-14 22:00] VITALS: BP 91/59
[2021-03-14] MEDS: ATORVASTATIN 20 MG TAB PO SCH (22:23)
[2021-03-14] MEDS: ZOLPIDEM TARTRATE 5 MG TAB PO PRN (22:50)
[2021-03-14] MEDS: LOPERAMIDE HCL 2 MG CAP PO PRN (22:50)
[2021-03-14] MEDS: ALBUTEROL SULF 2.5 MG/0.5ML(0.5%) NEB SOLN NEB PRN (22:53)
[2021-03-15] MEDS: ALPRAZolam 0.5 MG TAB PO PRN (04:53)
[2021-03-15 05:00] VITALS: BP 96/68
[2021-03-15 05:37] LABS: Basophils # (auto) 0.1 10 ^3/uL (0-0.2); Basophils % (auto) 0.5 % (0.0-2.0); Eosinophils # (auto) 0.4 10 ^3/uL (0-0.8); Eosinophils % (auto) 2.7 % (0.0-7.0); Hematocrit 42.6 % (41.0-53.0); Hemoglobin 14.6 g/dL (13.5-17.5); Lymphocytes % (auto) 13.1 % (10.0-50.0); Mean Corpuscular Hemoglobin 31.6 pg (28.0-32.0); Mean Corpuscular Hgb Conc. 34.4 g/dL (32.0-36.0); Monocytes # (auto) 0.8 10 ^3/uL (0-1.3); Monocytes % (auto) 5.5 % (0.0-12.0); Neutrophils % (auto) 78.2 % (37.0-80.0); Nucleated Red Blood Cells % 0.1 %; Platelet Count (auto) 144 10^3/uL (140-450); Red Blood Cells 4.63 10^6/uL (4.5-5.90); Red Cell Distribution Width 14.7 % (11.8-14.3); White Blood Cell 15.3 10^3/uL (4.4-10.8)
[2021-03-15 05:56] LABS: Albumin 2.7 g/dL (3.4-5.0); Calcium 8.3 mg/dL (8.5-10.1); Potassium 3.6 mmol/L (3.5-5.1)
[2021-03-15 06:01] LABS: BUN/Creatinine Ratio 25.7; Bilirubin, Total 0.7 mg/dL (0.2-1.0); CRP High Sensitivity 0.12 mg/dL (< 0.3); Total Protein 5.8 g/dL (6.4-8.2)
[2021-03-15] MEDS: PIPERACILLIN-TAZOB 3.375GM 100 ML IV SCH ×3 (06:08→17:25)
[2021-03-15] MEDS: FUROSEMIDE 40 MG/4 ML VIAL IV SCH ×2 (06:08→16:51)
[2021-03-15] MEDS: BUDESONIDE (INHALATION) 0.5 MG/2 ML NEB NEB SCH ×2 (07:01→18:33)
[2021-03-15 09:00] VITALS: BP 97/73
[2021-03-15] MEDS: CARVEDILOL 3.125 MG TAB PO SCH ×2 (10:00→21:52)
[2021-03-15] MEDS: SACUBITRIL-VALSARTAN 24mg/26mg TAB PO SCH ×2 (10:00→21:53)
[2021-03-15] MEDS: DOXYCYCLINE 100 MG TAB/CAP PO SCH ×2 (10:20→21:58)
[2021-03-15] MEDS: POTASSIUM CHL 20 Meq TABLET PO SCH (10:20)
[2021-03-15] MEDS: CLOPIDOGREL BISULFATE 75 MG TAB PO SCH (10:20)
[2021-03-15] MEDS: ASPirin 81 mg TAB PO SCH (10:20)
[2021-03-15] MEDS: PANTOPRAZOLE 40 MG TAB PO SCH (10:20)
[2021-03-15] MEDS: CHOLECALCIFEROL (VITD3) 1,000UNIT=25mCg TAB PO SCH (10:21)
[2021-03-15] MEDS: ASCORBIC ACID 500 MG TAB PO SCH (10:21)
[2021-03-15] MEDS: HYDROcodone-ACET 5/325MG TAB PO PRN (11:19)
[2021-03-15 12:53] VITALS: BP 95/64
[2021-03-15 16:55] VITALS: BP 85/59
[2021-03-15] MEDS: ALBUTEROL SULF 2.5 MG/0.5ML(0.5%) NEB SOLN NEB PRN (18:33)
[2021-03-15] MEDS: ATORVASTATIN 20 MG TAB PO SCH (21:58)
[2021-03-15 22:00] VITALS: BP 87/67
[2021-03-15] MEDS: ZOLPIDEM TARTRATE 5 MG TAB PO PRN (22:06)
[2021-03-16] MEDS: PIPERACILLIN-TAZOB 3.375GM 100 ML IV SCH ×3 (00:07→12:25)
[2021-03-16 00:46] VITALS: BP 87/67
[2021-03-16] MEDS: HYDROcodone-ACET 5/325MG TAB PO PRN (04:03)
[2021-03-16] MEDS: ALPRAZolam 0.5 MG TAB PO PRN (04:56)
[2021-03-16 05:00] VITALS: BP 107/75
[2021-03-16] MEDS: FUROSEMIDE 40 MG/4 ML VIAL IV SCH (06:59)
[2021-03-16] MEDS ORDERED: IOHEXOL 350 MG/ML 100ML IJ ONE (07:43)
[2021-03-16 08:30] VITALS: BP 99/66
[2021-03-16] MEDS: SACUBITRIL-VALSARTAN 24mg/26mg TAB PO SCH (10:00)
[2021-03-16] MEDS: BUDESONIDE (INHALATION) 0.5 MG/2 ML NEB NEB SCH (10:25)
[2021-03-16] MEDS: ASPirin 81 mg TAB PO SCH (12:23)
[2021-03-16] MEDS: CARVEDILOL 3.125 MG TAB PO SCH (12:24)
[2021-03-16] MEDS: CLOPIDOGREL BISULFATE 75 MG TAB PO SCH (12:24)
[2021-03-16] MEDS: PANTOPRAZOLE 40 MG TAB PO SCH (12:24)
[2021-03-16] MEDS: DOXYCYCLINE 100 MG TAB/CAP PO SCH (12:24)
[2021-03-16] MEDS: POTASSIUM CHL 20 Meq TABLET PO SCH (12:24)
[2021-03-16] MEDS: ASCORBIC ACID 500 MG TAB PO SCH (12:25)
[2021-03-16] MEDS: CHOLECALCIFEROL (VITD3) 1,000UNIT=25mCg TAB PO SCH (12:25)
[2021-03-16 13:00] VITALS: BP 111/67
[2021-03-16 14:36] VITALS: BP 111/67
[2021-03-16] MEDS: LOPERAMIDE HCL 2 MG CAP PO PRN (15:42)
[2021-03-16 16:27] VITALS: BP 126/74
== END 2021-03-16 18:10 | disposition home health service (06) | DRG 291 ==
LOC: ER 15:02 → EDBD 15:02 → TELE 19:47 → TELE-EAST 23:20
PROVIDERS: ADMIT Internal Medicine; ATTEND Internal Medicine
DX: I11.0 Hypertensive heart disease with heart failure (principal); J18.9 Pneumonia, unspecified organism; J96.21 Acute and chronic respiratory failure with hypoxia; E44.0 Moderate protein-calorie malnutrition; N39.0 Urinary tract infection, site not specified; J98.11 Atelectasis; R65.10 Systemic inflammatory response syndrome (SIRS) of non-infectious origin without acute organ dysfunction; I50.23 Acute on chronic systolic (congestive) heart failure; I25.10 Atherosclerotic heart disease of native coronary artery without angina pectoris; R74.8 Abnormal levels of other serum enzymes; K21.9 Gastro-esophageal reflux disease without esophagitis; I25.5 Ischemic cardiomyopathy; E78.5 Hyperlipidemia, unspecified; Z90.49 Acquired absence of other specified parts of digestive tract; Z20.822 Contact with and (suspected) exposure to COVID-19; Z86.16 Personal history of COVID-19
CPT/HCPCS: 36415; 36600; 71045; 71275; 80053; 81001; 82728; 82805; 83605; 83735; 83880; 84443; 84484; 85025; 85379; 85610; 85730; 86141; 87040; 87081; 87426; 93005; 93306; 93970; 94640; 96365; 96368; 96375; 99291; G0378; J0696; J2543

== ENCOUNTER 2021-04-01 20:32 | Inpatient (IN) | payer MEDICARE ==
[~2021-04-01] VITALS: Ht 182.9 cm; Wt 87.3 kg
[2021-04-01] MEDS ORDERED: ONDANSETRON HCL 4 MG/2 ML VIAL IV ONE ×2 (21:00→21:30)
[2021-04-01] MEDS ORDERED: SODIUM CHLORIDE 0.9% 500 ML IV ONE (21:15)
[2021-04-01 21:26] LABS: Basophils # (auto) 0.1 10 ^3/uL (0-0.2); Basophils % (auto) 0.4 % (0.0-2.0); Eosinophils # (auto) 0.1 10 ^3/uL (0-0.8); Eosinophils % (auto) 0.7 % (0.0-7.0); Hematocrit 34.3 % (41.0-53.0); Hemoglobin 11.6 g/dL (13.5-17.5); Lymphocytes # (auto) 3.9 10 ^3/uL (0.4-5.4); Lymphocytes % (auto) 20.9 % (10.0-50.0); Mean Corpuscular Hemoglobin 31.3 pg (28.0-32.0); Mean Corpuscular Hgb Conc. 33.7 g/dL (32.0-36.0); Mean Corpuscular Volume 92.9 fL (80.0-100.0); Monocytes # (auto) 1.2 10 ^3/uL (0-1.3); Monocytes % (auto) 6.5 % (0.0-12.0); Neutrophils # (auto) 13.2 10 ^3/uL (1.6-8.6); Neutrophils % (auto) 71.5 % (37.0-80.0); Nucleated Red Blood Cells % 0.1 %; Platelet Count (auto) 396 10^3/uL (140-450); Red Blood Cells 3.69 10^6/uL (4.5-5.90); Red Cell Distribution Width 15.4 % (11.8-14.3); White Blood Cell 18.5 10^3/uL (4.4-10.8)
[2021-04-01] MEDS ORDERED: fentaNYL CITRATE 100 MCG/2 ML VL IV ONE (21:30)
[2021-04-01 21:44] LABS: Albumin 2.8 g/dL (3.4-5.0); BUN/Creatinine Ratio 14.1; Calcium 8.8 mg/dL (8.5-10.1); Potassium 3.8 mmol/L (3.5-5.1)
[2021-04-01 21:50] LABS: Bilirubin, Total 0.6 mg/dL (0.2-1.0); Total Protein 7.6 g/dL (6.4-8.2)
[2021-04-01] MEDS ORDERED: IOHEXOL 350 MG/ML 100ML IJ ONE (22:27)
[2021-04-01 22:28] LABS: INR 1.18 (0.9-1.15)
[2021-04-01 22:35] LABS: Lactic Acid w/Reflex 3.4 mmol/L (0.4-2.0)
[2021-04-01] MEDS ORDERED: HYDROmorphone HCL 2 MG/ML VL IV ONE (23:30)
[2021-04-01] MEDS ORDERED: HYDROmorphone HCL 2 MG/ML VL ONE (23:44)
[2021-04-02] MEDS ORDERED: ENOXAPARIN SOD 100 MG/1 ML SYRINGE SC ONE (01:30)
[2021-04-02] MEDS ORDERED: SODIUM CHLORIDE 0.9% 500 ML IV ONE (01:45)
[2021-04-02] MEDS ORDERED: VANCOMYCIN PER PHARMACY 0 MG IV SCH (02:00)
[2021-04-02] MEDS ORDERED: DOCUSATE SOD 100 MG CAP PO PRN (02:00)
[2021-04-02] MEDS ORDERED: MORPHINE SULF INJ 2 MG/ML SYRINGE 1ML IV PRN (02:00)
[2021-04-02] MEDS ORDERED: NITROGLYCERIN 0.4 MG SL TAB SL PRN (02:00)
[2021-04-02] MEDS ORDERED: ACETAMINOPHEN 325 MG TAB PO PRN (02:00)
[2021-04-02] MEDS ORDERED: VANCOMYCIN 1GM/250ML 250 ML IV ONE (02:15)
[2021-04-02] MEDS: HYDROcodone-ACET 5/325MG TAB PO PRN ×2 (02:17→06:18)
[2021-04-02] MEDS: SODIUM CHLORIDE 0.9% 1,000 ML IV SCH ×2 (02:18→18:28)
[2021-04-02 04:07] VITALS: BP 93/54
[2021-04-02] MEDS ORDERED: HEPARIN SODIUM (PORCINE) 5000 UNITS/ML 1ML VIAL SC SCH (06:00)
[2021-04-02 08:12] LABS: Basophils # (auto) 0.1 10 ^3/uL (0-0.2); Basophils % (auto) 0.5 % (0.0-2.0); Eosinophils # (auto) 0 10 ^3/uL (0-0.8); Eosinophils % (auto) 0.1 % (0.0-7.0); Hematocrit 32.3 % (41.0-53.0); Hemoglobin 10.6 g/dL (13.5-17.5); Lymphocytes # (auto) 2.5 10 ^3/uL (0.4-5.4); Lymphocytes % (auto) 14.9 % (10.0-50.0); Mean Corpuscular Hemoglobin 30.5 pg (28.0-32.0); Mean Corpuscular Volume 92.5 fL (80.0-100.0); Neutrophils # (auto) 13.2 10 ^3/uL (1.6-8.6); Neutrophils % (auto) 78.5 % (37.0-80.0); Nucleated Red Blood Cells % 0.1 %; Platelet Count (auto) 319 10^3/uL (140-450); Red Blood Cells 3.49 10^6/uL (4.5-5.90); Red Cell Distribution Width 15.4 % (11.8-14.3); White Blood Cell 16.8 10^3/uL (4.4-10.8)
[2021-04-02 08:20] LABS: Albumin 2.6 g/dL (3.4-5.0); Calcium 8.6 mg/dL (8.5-10.1); Potassium 4.2 mmol/L (3.5-5.1)
[2021-04-02 08:22] LABS: BUN/Creatinine Ratio 14.6; Bilirubin, Total 0.6 mg/dL (0.2-1.0); Total Protein 6.9 g/dL (6.4-8.2)
[2021-04-02 08:23] VITALS: BP 99/66
[2021-04-02] MEDS: cefTRIAXone 1GM/50ML D5W 50 ML IV SCH (10:30)
[2021-04-02] MEDS: FAMOTIDINE (10MG/ML) 2ML VL IV SCH (10:31)
[2021-04-02] MEDS: ZINC SULFATE 220mg CAP or TAB PO SCH (10:31)
[2021-04-02] MEDS: ASCORBIC ACID 500 MG TAB PO SCH ×2 (10:32→21:23)
[2021-04-02] MEDS: MULTIPLE VITAMIN TAB PO SCH (10:32)
[2021-04-02] MEDS: ONDANSETRON HCL 4 MG/2 ML VIAL IV PRN ×3 (10:34→21:23)
[2021-04-02 12:50] VITALS: BP 81/57
[2021-04-02] MEDS: Ensure HIGH Protein Chocolate 8oz Bottle PO SCH ×2 (13:46→18:00)
[2021-04-02] MEDS: APIXABAN 5 MG TAB PO SCH ×2 (13:46→21:22)
[2021-04-02 16:55] VITALS: BP 102/72
[2021-04-02] MEDS ORDERED: HYDROcodone-ACET 5/325MG TAB PO ONE (19:45)
[2021-04-02 23:14] VITALS: BP 112/78
[2021-04-03 02:58] LABS: Urine Bacteria FEW /hpf (None Seen); Urine Blood Negative /uL (Negative); Urine Hyaline Cast MANY /lpf (0 - 2); Urine Mucus FEW (None Seen); Urine Specific Gravity 1.026 (1.001-1.035); Urine WBC 46 /hpf (0 - 3)
[2021-04-03] MEDS: ONDANSETRON HCL 4 MG/2 ML VIAL IV PRN ×4 (03:04→22:57)
[2021-04-03 05:29] VITALS: BP 95/65
[2021-04-03] MEDS: Ensure HIGH Protein Chocolate 8oz Bottle PO SCH ×3 (08:00→18:00)
[2021-04-03] MEDS: cefTRIAXone 1GM/50ML D5W 50 ML IV SCH (08:37)
[2021-04-03 09:00] VITALS: BP 100/58
[2021-04-03] MEDS: FAMOTIDINE (10MG/ML) 2ML VL IV SCH ×2 (09:33→21:11)
[2021-04-03] MEDS: APIXABAN 5 MG TAB PO SCH (09:34)
[2021-04-03] MEDS: ZINC SULFATE 220mg CAP or TAB PO SCH (09:34)
[2021-04-03] MEDS: ASCORBIC ACID 500 MG TAB PO SCH ×2 (09:34→21:11)
[2021-04-03] MEDS: MULTIPLE VITAMIN TAB PO SCH (09:34)
[2021-04-03 11:29] LABS: Basophils # (auto) 0.1 10 ^3/uL (0-0.2); Basophils % (auto) 0.5 % (0.0-2.0); Eosinophils # (auto) 0 10 ^3/uL (0-0.8); Eosinophils % (auto) 0.1 % (0.0-7.0); Hematocrit 29.1 % (41.0-53.0); Hemoglobin 9.7 g/dL (13.5-17.5); Lymphocytes # (auto) 1.9 10 ^3/uL (0.4-5.4); Lymphocytes % (auto) 11.7 % (10.0-50.0); Mean Corpuscular Hemoglobin 30.6 pg (28.0-32.0); Mean Corpuscular Hgb Conc. 33.3 g/dL (32.0-36.0); Mean Corpuscular Volume 91.9 fL (80.0-100.0); Monocytes # (auto) 1.1 10 ^3/uL (0-1.3); Monocytes % (auto) 6.8 % (0.0-12.0); Neutrophils # (auto) 13.4 10 ^3/uL (1.6-8.6); Neutrophils % (auto) 80.9 % (37.0-80.0); Platelet Count (auto) 314 10^3/uL (140-450); Red Blood Cells 3.16 10^6/uL (4.5-5.90); Red Cell Distribution Width 15.4 % (11.8-14.3); White Blood Cell 16.6 10^3/uL (4.4-10.8)
[2021-04-03 12:11] LABS: Potassium 4.9 mmol/L (3.5-5.1)
[2021-04-03 12:24] LABS: Albumin 2.1 g/dL (3.4-5.0); BUN/Creatinine Ratio 20.6; Bilirubin, Total 0.4 mg/dL (0.2-1.0); Calcium 8.8 mg/dL (8.5-10.1); Total Protein 6.5 g/dL (6.4-8.2)
[2021-04-03 13:00] VITALS: BP 100/68
[2021-04-03] MEDS: MORPHINE SULF INJ 2 MG/ML SYRINGE 1ML IV PRN ×2 (16:47→21:12)
[2021-04-03 17:00] VITALS: BP 101/72
[2021-04-03] MEDS: ENOXAPARIN SOD 80 MG/0.8ML SYRINGE SC SCH (21:11)
[2021-04-03 22:00] VITALS: BP 104/67
[2021-04-03] MEDS: HYDROcodone-ACET 5/325MG TAB PO PRN (22:54)
[2021-04-04] MEDS: MORPHINE SULF INJ 2 MG/ML SYRINGE 1ML IV PRN ×2 (01:13→05:19)
[2021-04-04 05:00] VITALS: BP 99/67
[2021-04-04 06:10] LABS: Basophils # (auto) 0 10 ^3/uL (0-0.2); Basophils % (auto) 0.3 % (0.0-2.0); Eosinophils # (auto) 0.1 10 ^3/uL (0-0.8); Eosinophils % (auto) 0.5 % (0.0-7.0); Hematocrit 27.4 % (41.0-53.0); Hemoglobin 8.9 g/dL (13.5-17.5); Lymphocytes # (auto) 2.3 10 ^3/uL (0.4-5.4); Lymphocytes % (auto) 14.2 % (10.0-50.0); Mean Corpuscular Hemoglobin 31.6 pg (28.0-32.0); Mean Corpuscular Hgb Conc. 32.6 g/dL (32.0-36.0); Mean Corpuscular Volume 96.7 fL (80.0-100.0); Monocytes # (auto) 1.4 10 ^3/uL (0-1.3); Monocytes % (auto) 8.5 % (0.0-12.0); Neutrophils # (auto) 12.3 10 ^3/uL (1.6-8.6); Neutrophils % (auto) 76.5 % (37.0-80.0); Nucleated Red Blood Cells % 0.1 %; Platelet Count (auto) 331 10^3/uL (140-450); Red Blood Cells 2.83 10^6/uL (4.5-5.90); Red Cell Distribution Width 16.2 % (11.8-14.3)
[2021-04-04 07:37] LABS: Calcium 8.6 mg/dL (8.5-10.1)
[2021-04-04] MEDS: Ensure HIGH Protein Chocolate 8oz Bottle PO SCH ×3 (08:00→18:08)
[2021-04-04 09:00] VITALS: BP 99/66
[2021-04-04] MEDS: ONDANSETRON HCL 4 MG/2 ML VIAL IV PRN ×2 (09:29→17:00)
[2021-04-04] MEDS: FAMOTIDINE (10MG/ML) 2ML VL IV SCH ×2 (09:29→21:19)
[2021-04-04] MEDS: ZINC SULFATE 220mg CAP or TAB PO SCH (09:30)
[2021-04-04] MEDS: ASPirin 81 mg TAB PO SCH (09:30)
[2021-04-04] MEDS: ASCORBIC ACID 500 MG TAB PO SCH ×2 (09:31→21:19)
[2021-04-04] MEDS: cefTRIAXone 1GM/50ML D5W 50 ML IV SCH (09:31)
[2021-04-04] MEDS: MULTIPLE VITAMIN TAB PO SCH (09:31)
[2021-04-04] MEDS: CLOPIDOGREL BISULFATE 75 MG TAB PO SCH (09:31)
[2021-04-04] MEDS: ENOXAPARIN SOD 80 MG/0.8ML SYRINGE SC SCH ×2 (09:31→19:48)
[2021-04-04 13:00] VITALS: BP 101/68
[2021-04-04 16:38] VITALS: BP 103/67
[2021-04-04] MEDS: HYDROmorphone HCL 2 MG/ML VL IV PRN ×2 (17:05→21:19)
[2021-04-04 22:00] VITALS: BP 103/68
[2021-04-05] VITALS (10 sets, daily range): BP systolic 85–147; BP diastolic 56–105
[2021-04-05] MEDS: HYDROmorphone HCL 2 MG/ML VL IV PRN ×2 (05:36→12:13)
[2021-04-05 07:05] LABS: Basophils # (auto) 0.1 10 ^3/uL (0-0.2); Basophils % (auto) 0.5 % (0.0-2.0); Eosinophils # (auto) 0.1 10 ^3/uL (0-0.8); Eosinophils % (auto) 0.8 % (0.0-7.0); Hematocrit 24.8 % (41.0-53.0); Hemoglobin 8.5 g/dL (13.5-17.5); Lymphocytes # (auto) 1.8 10 ^3/uL (0.4-5.4); Lymphocytes % (auto) 14.2 % (10.0-50.0); Mean Corpuscular Hemoglobin 31.4 pg (28.0-32.0); Mean Corpuscular Hgb Conc. 34.2 g/dL (32.0-36.0); Mean Corpuscular Volume 91.9 fL (80.0-100.0); Monocytes # (auto) 1.1 10 ^3/uL (0-1.3); Monocytes % (auto) 8.7 % (0.0-12.0); Neutrophils # (auto) 9.5 10 ^3/uL (1.6-8.6); Neutrophils % (auto) 75.8 % (37.0-80.0); Platelet Count (auto) 317 10^3/uL (140-450); Red Cell Distribution Width 15.5 % (11.8-14.3); White Blood Cell 12.5 10^3/uL (4.4-10.8)
[2021-04-05 07:09] LABS: BUN/Creatinine Ratio 30.9; Calcium 8.4 mg/dL (8.5-10.1)
[2021-04-05] MEDS: Ensure HIGH Protein Chocolate 8oz Bottle PO SCH ×3 (08:00→18:00)
[2021-04-05] MEDS: cefTRIAXone 1GM/50ML D5W 50 ML IV SCH (09:00)
[2021-04-05] MEDS: CLOPIDOGREL BISULFATE 75 MG TAB PO SCH (10:00)
[2021-04-05] MEDS: ASCORBIC ACID 500 MG TAB PO SCH ×2 (10:00→22:05)
[2021-04-05] MEDS: FAMOTIDINE (10MG/ML) 2ML VL IV SCH ×2 (10:00→22:05)
[2021-04-05] MEDS: ENOXAPARIN SOD 80 MG/0.8ML SYRINGE SC SCH (10:00)
[2021-04-05] MEDS: MULTIPLE VITAMIN TAB PO SCH (10:00)
[2021-04-05] MEDS: ZINC SULFATE 220mg CAP or TAB PO SCH (10:00)
[2021-04-05] MEDS: ASPirin 81 mg TAB PO SCH (10:00)
[2021-04-05] MEDS ORDERED: IODIXANOL 320MG/ML 100ML BTL IV ONE (10:13)
[2021-04-05] MEDS ORDERED: LIDOCAINE 2%HCL (LOCAL ANESTH.) INJ 20ML MDV ONE ×2 (10:13→14:20)
[2021-04-05] MEDS ORDERED: HEPARIN IN NS 1000Units/500mL 0 ML ONE (10:13)
[2021-04-05] MEDS ORDERED: ANGIOMAX 250 MG VIAL IV ONE ×3 (14:19→17:54)
[2021-04-05] MEDS ORDERED: diphenhdrAMINE HCL 50 MG/1 ML VL ONE (14:20)
[2021-04-05] MEDS ORDERED: SODIUM CHL 0.9% 50 ML ONE ×3 (14:20→17:54)
[2021-04-05] MEDS ORDERED: fentaNYL CITRATE 100 MCG/2 ML VL ONE ×2 (14:20→17:22)
[2021-04-05] MEDS ORDERED: MIDAZOLAM HCL 1MG/1ML-2 ML VIAL ONE (14:20)
[2021-04-05] MEDS ORDERED: IOHEXOL 350 MG/ML 100ML IJ ONE (14:27)
[2021-04-05] MEDS ORDERED: HYDROmorphone HCL 2 MG/ML VL ONE ×2 (16:39→17:46)
[2021-04-05] MEDS: ENOXAPARIN SOD 100 MG/1 ML SYRINGE SC SCH (19:09)
[2021-04-05 21:01] LABS: INR 2.21 (0.9-1.15)
[2021-04-05 21:06] LABS: Partial Thromboplastin Time 101.1 sec (23.0-31.2)
[2021-04-06] VITALS (7 sets, daily range): BP systolic 88–106; BP diastolic 56–75
[2021-04-06] MEDS: ENOXAPARIN SOD 100 MG/1 ML SYRINGE SC SCH (06:34)
[2021-04-06] MEDS: Ensure HIGH Protein Chocolate 8oz Bottle PO SCH ×3 (08:00→18:00)
[2021-04-06 08:05] LABS: Hematocrit 31.5 % (41.0-53.0); Mean Corpuscular Hemoglobin 32.1 pg (28.0-32.0); Mean Corpuscular Hgb Conc. 34.9 g/dL (32.0-36.0); Mean Corpuscular Volume 92.1 fL (80.0-100.0); Platelet Count (auto) 284 10^3/uL (140-450); Red Blood Cells 3.42 10^6/uL (4.5-5.90); Red Cell Distribution Width 15.7 % (11.8-14.3); White Blood Cell 11.5 10^3/uL (4.4-10.8)
[2021-04-06 08:15] LABS: Basophils % (manual) 0 (0.0-2.0); Blast Cells 0; Metamyelocytes % 0; Promyelocytes % 0; Reactive Lymphocytes 0
[2021-04-06 08:40] LABS: Band Neutrophils % (manual) 1; Eosinophils % (manual) 3 (0-7); Lymphocytes % (manual) 23 (10.0-50.0); Monocytes % (manual) 6 (0-12); Myelocytes % 1
[2021-04-06] MEDS ORDERED: ENOXAPARIN SOD 100 MG/1 ML SYRINGE SC SCH (09:30)
[2021-04-06] MEDS: cefTRIAXone 1GM/50ML D5W 50 ML IV SCH (09:33)
[2021-04-06] MEDS: ZINC SULFATE 220mg CAP or TAB PO SCH (09:34)
[2021-04-06] MEDS: FAMOTIDINE (10MG/ML) 2ML VL IV SCH (09:34)
[2021-04-06] MEDS: ASCORBIC ACID 500 MG TAB PO SCH (09:35)
[2021-04-06] MEDS: MULTIPLE VITAMIN TAB PO SCH (09:35)
[2021-04-06] MEDS ORDERED: CLOPIDOGREL BISULFATE 75 MG TAB PO SCH ×2 (10:00)
[2021-04-06] MEDS ORDERED: RIVAROXABAN 20 MG TAB PO ONE (11:00)
[2021-04-06] MEDS ORDERED: RIV20T PO (11:14)
[2021-04-06] MEDS ORDERED: RIVAROXABAN 20 MG TAB PO SCH (18:00)
[2021-04-06] MEDS ORDERED: RIVAROXABAN 15 MG TAB PO SCH (22:00)
[2021-04-09] MEDS ORDERED: APIXABAN 5 MG TAB PO SCH (10:00)
[2021-04-28] MEDS ORDERED: RIVAROXABAN 20 MG TAB PO SCH (18:00)
== END 2021-04-06 20:44 | disposition home health service (06) | DRG 853 ==
LOC: EDUNIT# 20:32 → EDBD 20:32 → ER 20:34 → TELE 04-02 01:47 → TELE-EAST 04-02 04:20
PROVIDERS: ADMIT Nurse Practitioner Family; ATTEND Internal Medicine Pulmonary Disease
PROC: B51D1ZZ Fluoroscopy of Bilateral Lower Extremity Veins using Low Osmolar Contrast (ICD-10-PCS; principal; 2021-04-05)
PROC: 06CD3ZZ Extirpation of Matter from Left Common Iliac Vein, Percutaneous Approach (ICD-10-PCS; 2021-04-05)
PROC: 06CM3ZZ Extirpation of Matter from Right Femoral Vein, Percutaneous Approach (ICD-10-PCS; 2021-04-05)
PROC: 06CN3ZZ Extirpation of Matter from Left Femoral Vein, Percutaneous Approach (ICD-10-PCS; 2021-04-05)
PROC: 06CC3ZZ Extirpation of Matter from Right Common Iliac Vein, Percutaneous Approach (ICD-10-PCS; 2021-04-05)
PROC: 06C03ZZ Extirpation of Matter from Inferior Vena Cava, Percutaneous Approach (ICD-10-PCS; 2021-04-05)
PROC: 30233N1 Transfusion of Nonautologous Red Blood Cells into Peripheral Vein, Percutaneous Approach (ICD-10-PCS; 2021-04-05)
DX: A41.9 Sepsis, unspecified organism (principal); N17.0 Acute kidney failure with tubular necrosis; D68.9 Coagulation defect, unspecified; E87.1 Hypo-osmolality and hyponatremia; E44.0 Moderate protein-calorie malnutrition; I50.22 Chronic systolic (congestive) heart failure; J84.9 Interstitial pulmonary disease, unspecified; J96.11 Chronic respiratory failure with hypoxia; N39.0 Urinary tract infection, site not specified; I13.0 Hypertensive heart and chronic kidney disease with heart failure and stage 1 through stage 4 chronic kidney disease, or unspecified chronic kidney disease; I47.2 Ventricular tachycardia; I82.403 Acute embolism and thrombosis of unspecified deep veins of lower extremity, bilateral; D63.8 Anemia in other chronic diseases classified elsewhere; R73.9 Hyperglycemia, unspecified; N18.9 Chronic kidney disease, unspecified; I25.10 Atherosclerotic heart disease of native coronary artery without angina pectoris; Z20.822 Contact with and (suspected) exposure to COVID-19; K21.9 Gastro-esophageal reflux disease without esophagitis; J44.9 Chronic obstructive pulmonary disease, unspecified; E78.5 Hyperlipidemia, unspecified; I71.4 Abdominal aortic aneurysm, without rupture; Z68.36 Body mass index [BMI] 36.0-36.9, adult; I25.2 Old myocardial infarction; Z82.49 Family history of ischemic heart disease and other diseases of the circulatory system; Z95.5 Presence of coronary angioplasty implant and graft; Z95.828 Presence of other vascular implants and grafts; Z87.891 Personal history of nicotine dependence; Z87.01 Personal history of pneumonia (recurrent); Z86.718 Personal history of other venous thrombosis and embolism; Z79.01 Long term (current) use of anticoagulants; Z90.49 Acquired absence of other specified parts of digestive tract
CPT/HCPCS: 34201; 36415; 71045; 74176; 75716; 78582; 80048; 80053; 80202; 81001; 83036; 83605; 83735; 83880; 84443; 84484; 85007; 85025; 85027; 85610; 85730; 86850; 86900; 86901; 86920; 87040; 87081; 87086; 87088; 87426; 93005; 93925; 93971; 96365; 96368; 96372; 96375; 96376; 99152; 99153; G0378; J0696; J2250; J2405; J3490; Q9967

== ENCOUNTER → 2021-08-23 | Outpatient (CLI) | payer MEDICARE ==
[~2021-08-23] MED LIST changes: +RIV20T PO
== END | disposition home or self-care (01) ==
LOC: Rad HDHVI 13:51
PROVIDERS: ATTEND Internal Medicine
DX: M79.642 Pain in left hand (principal); R53.1 Weakness; R20.0 Anesthesia of skin
CPT/HCPCS: 93926

== ENCOUNTER 2024-06-05 10:35 | Inpatient (IN) | payer OTHER ==
[~2024-06-05] VITALS: Ht 190.5 cm; Wt 90.9 kg
[~2024-06-05 10:35] MED LIST changes: +ASPI-736 PO; -ASPI1CHW15 PO; -CAR3125T PO; +CARV-214 PO; +POTA-215 PO; -POTA1TAB61 PO
[2024-06-05 11:05] VITALS: PULSE 51; O2SAT 96
[2024-06-05 11:06] LABS: Basophils # (auto) 0 10 ^3/uL (0-0.2); Basophils % (auto) 0.4 % (0.0-2.0); Eosinophils # (auto) 0.1 10 ^3/uL (0-0.8); Eosinophils % (auto) 0.8 % (0.0-7.0); Hematocrit 50.1 % (41.0-53.0); Hemoglobin 17.1 g/dL (13.5-17.5); Lymphocytes # (auto) 1.8 10 ^3/uL (0.4-5.4); Mean Corpuscular Hemoglobin 31.3 pg (28.0-32.0); Mean Corpuscular Hgb Conc. 34.1 g/dL (32.0-36.0); Mean Corpuscular Volume 91.7 fL (80.0-100.0); Monocytes # (auto) 0.5 10 ^3/uL (0-1.3); Monocytes % (auto) 5.5 % (0.0-12.0); Neutrophils # (auto) 6.7 10 ^3/uL (1.6-8.6); Neutrophils % (auto) 73.3 % (37.0-80.0); Nucleated Red Blood Cells % 0.1 %; Red Blood Cells 5.46 10^6/uL (4.5-5.90); Red Cell Distribution Width 13.3 % (11.8-14.3); White Blood Cell 9.1 10^3/uL (4.4-10.8)
[2024-06-05 11:24] LABS: Alanine Aminotransferase 41 U/L (7-40); Alkaline Phosphatase 154 U/L (46-116); Anion Gap 8 (5-15); Aspartate Aminotransferase 28 U/L (13-40); BUN/Creatinine Ratio 6.9 (10.0-20.0); Blood Urea Nitrogen 7 mg/dL (9-23); Calcium 9.4 mg/dL (8.7-10.4); Carbon Dioxide 19 mmol/L (20-30); Chloride 111 mmol/L (98-107); Glucose 100 mg/dL (74-106); Lipase 29 U/L (12-53); Potassium 4.6 mmol/L (3.5-5.1); Sodium 138 mmol/L (136-145)
[2024-06-05 11:25] LABS: Bilirubin, Total 0.7 mg/dL (0.2-1.0); Total Protein 7.1 g/dL (5.7-8.2)
[2024-06-05] MEDS: fentaNYL CITRATE 100 MCG/2 ML VL IV ONE (11:51)
[2024-06-05] MEDS: SODIUM CHLORIDE 0.9% 1,000 ML IV ONE (11:57)
[2024-06-05] MEDS: MORPHINE SULFATE INJ 2 MG/ml SYRG IV ONE (14:10)
[2024-06-05] MEDS: ONDANSETRON HCL 4 MG/2 ML VIAL IV ONE (14:12)
[2024-06-05] MEDS ORDERED: APIX5TAB PO (15:00)
[2024-06-05] MEDS ORDERED: AMLO1TAB22 PO (15:00)
[2024-06-05] MEDS ORDERED: CLOP75TA70 PO (15:00)
[2024-06-05] MEDS ORDERED: DOCUSATE SOD 100 MG CAP PO PRN (15:00)
[2024-06-05] MEDS: SODIUM CHLORIDE 0.9% 1,000 ML IV SCH (15:00)
[2024-06-05] MEDS ORDERED: LISI10TA34 PO (15:00)
[2024-06-05 15:04] LABS: Urine Bacteria FEW /hpf (None Seen); Urine Blood TRACE /uL (Negative); Urine Clarity Clear (Clear); Urine Color Yellow (Yellow); Urine Mucus FEW (None Seen); Urine Protein, UAD Negative (Negative); Urine Specific Gravity 1.018 (1.001-1.035); Urine Urobilinogen Normal (Negative); Urine WBC 29 /hpf (0 - 3)
[2024-06-05] MEDS: LACTULOSE 20Gm/30ML SOLN PO SCH (16:10)
[2024-06-05] MEDS: LISINOPRIL 20 MG TAB PO ONE (16:12)
[2024-06-05] MEDS: HYDROcodone-ACET 5/325MG TAB PO PRN (20:59)
[2024-06-05] MEDS: APIXABAN 5 MG TAB PO SCH (22:20)
[2024-06-05 23:00] VITALS: BP 110/74; PULSE 75; RESP 20; TEMP 97.5; O2SAT 97
[2024-06-05] MEDS: ACETAMINOPHEN 325 MG TAB PO PRN (23:34)
[2024-06-05] MEDS: TEMAZEPAM 15 MG CAP PO PRN (23:34)
[2024-06-05 23:37] VITALS: PULSE 75; RESP 20
[2024-06-06 01:00] VITALS: BP 102/74; PULSE 71; RESP 20; TEMP 97.6; O2SAT 98
[2024-06-06 05:00] VITALS: BP 124/91; PULSE 69; RESP 20; TEMP 97.5; O2SAT 95
[2024-06-06 06:05] LABS: Basophils # (auto) 0 10 ^3/uL (0-0.2); Basophils % (auto) 0.6 % (0.0-2.0); Eosinophils # (auto) 0.1 10 ^3/uL (0-0.8); Eosinophils % (auto) 0.8 % (0.0-7.0); Hematocrit 47.9 % (41.0-53.0); Hemoglobin 16.6 g/dL (13.5-17.5); Lymphocytes # (auto) 3.1 10 ^3/uL (0.4-5.4); Lymphocytes % (auto) 38.1 % (10.0-50.0); Mean Corpuscular Hemoglobin 31.7 pg (28.0-32.0); Mean Corpuscular Hgb Conc. 34.7 g/dL (32.0-36.0); Mean Corpuscular Volume 91.4 fL (80.0-100.0); Monocytes # (auto) 0.7 10 ^3/uL (0-1.3); Monocytes % (auto) 8.9 % (0.0-12.0); Neutrophils # (auto) 4.2 10 ^3/uL (1.6-8.6); Neutrophils % (auto) 51.6 % (37.0-80.0); Nucleated Red Blood Cells % 0.1 %; Red Blood Cells 5.25 10^6/uL (4.5-5.90); Red Cell Distribution Width 13.5 % (11.8-14.3); White Blood Cell 8.1 10^3/uL (4.4-10.8)
[2024-06-06 06:28] LABS: Alanine Aminotransferase 37 U/L (7-40); Albumin 3.7 g/dL (3.2-4.8); Alkaline Phosphatase 137 U/L (46-116); Anion Gap 8 (5-15); BUN/Creatinine Ratio 12.8 (10.0-20.0); Blood Urea Nitrogen 11 mg/dL (9-23); Calcium 8.7 mg/dL (8.7-10.4); Carbon Dioxide 23 mmol/L (20-30); Chloride 110 mmol/L (98-107); Glucose 92 mg/dL (74-106); Sodium 141 mmol/L (136-145)
[2024-06-06 06:29] LABS: Aspartate Aminotransferase 26 U/L (13-40); Bilirubin, Total 0.7 mg/dL (0.2-1.0); Total Protein 6.3 g/dL (5.7-8.2)
[2024-06-06 08:16] VITALS: BP 139/86; PULSE 66; RESP 19; TEMP 97.5; O2SAT 95
[2024-06-06] MEDS ORDERED: ENOXAPARIN SOD 40 MG/0.4 ML SYRINGE SC SCH (10:00)
[2024-06-06] MEDS: FAMOTIDINE (10MG/ML) 2ML VL IV SCH (11:12)
[2024-06-06] MEDS: CLOPIDOGREL BISULFATE 75 MG TAB PO SCH (11:13)
[2024-06-06] MEDS: amLODIPine BESYLATE 5 MG TAB PO SCH (11:13)
[2024-06-06 13:00] VITALS: BP 129/88; PULSE 61; RESP 16; TEMP 97.1; O2SAT 99
[2024-06-06] MEDS ORDERED: POLY335015 PO (13:05)
[2024-06-06 17:20] VITALS: BP 129/88; PULSE 61; RESP 16; TEMP 97.1; O2SAT 99
== END 2024-06-06 18:19 | disposition home or self-care (01) | DRG 392 ==
LOC: ER 10:35 → EDBD 10:35 → EDUNIT# 10:35 → OVERFLOW 14:59 → WEST WING 23:00
PROVIDERS: ADMIT Nurse Practitioner; ATTEND Nurse Practitioner
DX: K58.1 Irritable bowel syndrome with constipation (principal); E87.20 Acidosis, unspecified; I11.0 Hypertensive heart disease with heart failure; I50.9 Heart failure, unspecified; K21.9 Gastro-esophageal reflux disease without esophagitis; E78.5 Hyperlipidemia, unspecified; E11.9 Type 2 diabetes mellitus without complications; I25.10 Atherosclerotic heart disease of native coronary artery without angina pectoris; Z90.49 Acquired absence of other specified parts of digestive tract; Z82.49 Family history of ischemic heart disease and other diseases of the circulatory system; Z79.4 Long term (current) use of insulin; Z79.899 Other long term (current) drug therapy
CPT/HCPCS: 36415; 74176; 80053; 81001; 83690; 83880; 85025; 93005; 96361; 96374; 96375; 99291; G0378; J2405; J3490